=== PATIENT | female | born 1950 | race Two or more races ===

== ENCOUNTER 2017-04-15 21:05 | Emergency (ER) | payer OTHER, BC ==
[~2017-04-15] VITALS: Ht 149.9 cm; Wt 77.6 kg
[~2017-04-15 21:05] MED LIST: ALBU90AE IH; AMLO10TA2 PO; ATOR20TA PO; CALC600T12 PO; CHOL100044 PO; DOCU-170 PO; FLUT15.87 BNOSTRILS; FLUT1DIS IH; HYDR-552 PO; LOSA100T15 PO; MAGN400O6 PO; METO-304 PO; MULT1TAB73 PO; NORT25CA PO; NORT25CA5 PO; OMEG10007 PO; OMEP20CA10 PO; PHEN100C12 PO; POLY17PO4 PO; TRAM50TA2 PO; TRIA1CAP6 PO; WARF5TAB6 PO
--- NOTE | 2017-04-15 21:35 | NUR ---
67 yo female bb daughter. 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 pt denies diarrhea, pt skin warm and dry, rr even and unlabored. awaiting orders from provider
--- NOTE | 2017-04-15 21:41 | NUR ---
pt gowned, placed on cardiac catheterization technician
[2017-04-15] MEDS ORDERED: IV NS 0.9% 1,000 ML ONE (21:47)
[2017-04-15] MEDS ORDERED: ONDANSETRON HCL/PF 4 MG/2 ML VIAL ONE (21:47)
--- NOTE | 2017-04-15 21:50 | NUR ---
laborer demolition at bed side for blood draw
[2017-04-15 21:56] LABS: BASOPHILS # (AUTO) 0.1 /CMM (0.0-0.2); EOSINOPHILS # (AUTO) 0.1 /CMM (0.0-0.7); NEUTROPHILS # (AUTO) 4.7 /CMM (1.8-8.9); RDW COEFFICIENT OF VARIATION 12.7 (11.5-15.0)
--- NOTE | 2017-04-15 21:58 | NUR ---
20g rigth wrist iv started. medicated pt as ordered
[2017-04-15] MEDS ORDERED: IV NS 0.9% 1,000 ML BAG IV ONE (22:00)
[2017-04-15] MEDS ORDERED: ONDANSETRON HCL/PF 4 MG/2 ML VIAL IVP ONE (22:00)
[2017-04-15 22:01] LABS: BASOPHILS % (AUTO) 1.3 % (0.0-2.0); EOSINOPHILS % (AUTO) 1.7 % (0.0-6.0); HEMATOCRIT 43 % (33-45); HEMOGLOBIN 13.6 g/dL (11.5-14.8); LYMPHOCYTES # (AUTO) 1.3 /CMM (0.8-4.8); LYMPHOCYTES % (AUTO) 20.1 % (20.0-44.0); MEAN CORPUSCULAR HEMOGLOBIN 29 PG (26.0-33.0); MEAN CORPUSCULAR HGB CONC 32 g/dl (31.0-36.0); MEAN CORPUSCULAR VOLUME 92 fL (82-100); MONOCYTES # (AUTO) 0.4 /CMM (0.1-1.30); MONOCYTES % (AUTO) 6.6 % (2.0-12.0); NEUTROPHILS % (AUTO) 70.3 % (43.0-81.0); PLATELET COUNT (AUTO) 402 /CMM (150-450); RED BLOOD CELL COUNT(AUTO) 4.63 MIL/uL (4.0-5.2); WHITE BLOOD COUNT (AUTO) 6.6 K/uL (4.3-11.0)
[2017-04-15 22:14] LABS: CALCIUM, SERUM 9.3 mg/dL (8.5-10.1); POTASSIUM 4.5 mmol/L (3.5-5.1)
[2017-04-15 22:21] LABS: LACTIC ACID 1.6 mmol/L (0.4-2.0)
[2017-04-15 22:28] LABS: ALBUMIN 3.7 g/dL (3.4-5.0); BILIRUBIN,DIRECT 0.1 mg/dL (0.0-0.2); BILIRUBIN,TOTAL 0.5 mg/dL (0.2-1.0); TOTAL PROTEIN, SERUM 8.4 g/dL (6.4-8.2)
[2017-04-15] MEDS ORDERED: MORPHINE SULFATE INJ 2 MG/ML DISP.SYRIN IV ONE (22:30)
[2017-04-15] MEDS ORDERED: MORPHINE SULFATE INJ 4 MG/ML DISP.SYRIN ONE (22:33)
[2017-04-15] MEDS ORDERED: FENTANYL PF 100MCG/2ML AMPUL ONE (22:58)
[2017-04-15] MEDS ORDERED: FENTANYL PF 100MCG/2ML AMPUL IV ONE (23:00)
--- NOTE | 2017-04-15 23:11 | NUR ---
medicated pt as ordered
[2017-04-16 00:43] VITALS: BP 139/75
--- NOTE | 2017-04-16 00:43 | NUR ---
Patient discharged to home in stable condition. Written and verbal after care instructions given. Patient verbalizes understanding of instruction. PT ambulatory with a steady gait VITAL SIGNS WITHIN NORMAL LIMITS.IV removed. Catheter intact and site benign. Pressure and 4x4 applied to site. No bleeding noted.
== END 2017-04-16 00:44 | disposition home or self-care (01) ==
LOC: ER 21:05
DX: K42.9 Umbilical hernia without obstruction or gangrene (principal); E11.9 Type 2 diabetes mellitus without complications; E78.00 Pure hypercholesterolemia, unspecified; I10 Essential (primary) hypertension; K57.30 Diverticulosis of large intestine without perforation or abscess without bleeding; Z79.01 Long term (current) use of anticoagulants
CPT/HCPCS: 36415; 74176; 80048; 80076; 83605; 83690; 85025; 93005; 96361; 96374; 96375; 99285; A4606; J2270; J2405; J3010; J7030; Z7610

== ENCOUNTER 2019-05-19 14:57 | Emergency (ER) | payer OTHER, BC ==
[~2019-05-19] VITALS: Ht 149.9 cm; Wt 77.6 kg
[~2019-05-19 14:57] MED LIST changes: -AMLO10TA2 PO; +AMLO10TA7 PO; -DOCU-170 PO; +DOCU100C36 PO; +HYDR-4384 PO; -HYDR-552 PO; -LOSA100T15 PO; +LOSA100T31 PO; -METO-304 PO; +METO-357 PO; -OMEP20CA10 PO; +OMEP20CA11 PO; +WARF-58 PO; -WARF5TAB6 PO
--- NOTE | 2019-05-19 15:00 | NUR ---
BIB FAMILY W C/O COUGH AND CONGESTION X3 DAYS, -FEVER, AOX3, NOT IN DISTRESS, TO ER BED 1, HOOKED TO MONITOR. ON ROOM AIR AT 96% O2 SATURATION. CHANGED TO GOWN, PROVIDED W WARM BLANKET, AWAITING MD HSU.
[2019-05-19] MEDS ORDERED: IPRATROPIUM NEB FS 0.5 MG/2.5 ML AMPUL.NEB NEB ONE (15:30)
[2019-05-19] MEDS ORDERED: ALBUTEROL FS 2.5 MG/3 ML VIAL.NEB NEB ONE (15:30)
[2019-05-19] MEDS ORDERED: ALBUTEROL FS 2.5 MG/3 ML VIAL.NEB ONE (15:47)
[2019-05-19] MEDS ORDERED: IPRATROPIUM NEB FS 0.5 MG/2.5 ML AMPUL.NEB ONE (15:47)
[2019-05-19 15:50] LABS: BASOPHILS # (AUTO) 0.1 /CMM (0.0-0.2); BASOPHILS % (AUTO) 1.3 % (0.0-2.0); EOSINOPHILS % (AUTO) 2.2 % (0.0-6.0); HEMATOCRIT 43 % (33-45); HEMOGLOBIN 14.7 g/dL (11.5-14.8); LYMPHOCYTES # (AUTO) 0.9 /CMM (0.8-4.8); LYMPHOCYTES % (AUTO) 16.7 % (20.0-44.0); MEAN CORPUSCULAR HGB CONC 34 g/dl (31.0-36.0); MEAN CORPUSCULAR VOLUME 92 fL (82-100); MONOCYTES # (AUTO) 0.6 /CMM (0.1-1.30); MONOCYTES % (AUTO) 12.4 % (2.0-12.0); NEUTROPHILS # (AUTO) 3.5 /CMM (1.8-8.9); NEUTROPHILS % (AUTO) 67.4 % (43.0-81.0); PLATELET COUNT (AUTO) 245 /CMM (150-450); RED BLOOD CELL COUNT(AUTO) 4.69 MIL/uL (4.0-5.2); WHITE BLOOD COUNT (AUTO) 5.2 K/uL (4.3-11.0)
--- NOTE | 2019-05-19 15:58 | NUR ---
ONGOING BREATHING TREATMENT
[2019-05-19 16:10] LABS: CALCIUM, SERUM 9.4 mg/dL (8.5-10.1); CARBON DIOXIDE 29 mmol/L (21-32); CHLORIDE 99 mmol/L (98-107); CREATININE 0.7 mg/dL (0.6-1.3); GLUCOSE 134 mg/dL (74-106); SODIUM SERUM 136 mmol/L (136-145); UREA NITROGEN, BLOOD 15 mg/dL (7-18)
[2019-05-19 16:25] LABS: ALANINE AMINOTRANSFERASE 35 U/L (12-78); ALBUMIN 3.3 g/dL (3.4-5.0); ALKALINE PHOSPHATASE 118 U/L (46-116); ASPARTATE AMINOTRANSFERASE 23 U/L (15-37); B-TYPE NATRIURETIC PEPTIDE 205 PG/ML (0-125); BILIRUBIN,DIRECT 0.1 mg/dL (0.0-0.2); BILIRUBIN,TOTAL 0.8 mg/dL (0.2-1.0); TOTAL PROTEIN, SERUM 7.9 g/dL (6.4-8.2)
[2019-05-19 17:02] VITALS: BP 157/77
--- NOTE | 2019-05-19 17:03 | NUR ---
RX PROVIDED, PIV REMOVED, Patient discharged to home in stable condition. Written and verbal after care instructions given. Patient verbalizes understanding of instruction.
== END 2019-05-19 17:03 | disposition home or self-care (01) ==
LOC: ER 15:04
DX: J45.909 Unspecified asthma, uncomplicated (principal); E11.9 Type 2 diabetes mellitus without complications; I10 Essential (primary) hypertension; E78.00 Pure hypercholesterolemia, unspecified; Z90.710 Acquired absence of both cervix and uterus; Z86.73 Personal history of transient ischemic attack (TIA), and cerebral infarction without residual deficits; Z79.899 Other long term (current) drug therapy; Z79.01 Long term (current) use of anticoagulants
CPT/HCPCS: 36415; 71045-TC; 80048-TC; 80076-TC; 83880; 84484-TC; 85025-TC

== ENCOUNTER 2023-01-08 22:06 | Inpatient (IN) | payer OTHER ==
[~2023-01-08] VITALS: Ht 149.9 cm; Wt 83.5 kg
[~2023-01-08 22:06] MED LIST changes: +AMLO-213 PO; -AMLO10TA7 PO; +CALC-1143 PO; -CALC600T12 PO; +MULT-754 PO; -MULT1TAB73 PO; -OMEP20CA11 PO; +OMEP20CA15 PO
--- NOTE | 2023-01-08 22:27 | NUR ---
[id number] HOME C/O CHEST PAIN X 40 MIN. ASPIRIN 324MG AND .4NITRO SUBLINGUAL, PT IS ALERT AND ORIENTED. RR EVEN AND NONLABORED. CONNECTED TO MONITOR
--- NOTE | 2023-01-08 22:28 | NUR ---
IV LINE, LAC20G
[2023-01-08] MEDS ORDERED: NITROGLYCERIN 0.4 MG/TAB BOTTLE SL ONE (22:30)
--- NOTE | 2023-01-08 22:36 | NUR ---
MEAT SEAFOOD ASSOCIATE AT PT'S BEDSIDE
[2023-01-08] MEDS ORDERED: NITROGLYCERIN 0.4 MG/TAB BOTTLE ONE (22:38)
[2023-01-08 22:48] LABS: BASOPHILS # (AUTO) 0.1 K/uL (0.0-0.2); BASOPHILS % (AUTO) 1.2 % (0.0-2.0); EOSINOPHILS % (AUTO) 2.6 % (0.0-6.0); HEMATOCRIT 38 % (33-45); HEMOGLOBIN 12.7 g/dL (11.5-14.8); LYMPHOCYTES # (AUTO) 2.3 K/uL (0.8-4.8); LYMPHOCYTES % (AUTO) 28.2 % (20.0-44.0); MEAN CORPUSCULAR HGB CONC 33 g/dl (31.0-36.0); MEAN CORPUSCULAR VOLUME 88 fL (82-100); MONOCYTES # (AUTO) 0.7 K/uL (0.1-1.30); MONOCYTES % (AUTO) 8.4 % (2.0-12.0); NEUTROPHILS # (AUTO) 4.9 K/uL (1.8-8.9); NEUTROPHILS % (AUTO) 59.6 % (43.0-81.0); PLATELET COUNT (AUTO) 272 K/uL (150-450); RED BLOOD CELL COUNT(AUTO) 4.34 MIL/uL (4.0-5.2); WHITE BLOOD COUNT (AUTO) 8.3 K/uL (4.3-11.0)
[2023-01-08 23:10] LABS: CARBON DIOXIDE 26 mmol/L (21-32); CHLORIDE 95 mmol/L (98-107); CREATININE 1.1 mg/dL (0.6-1.3); GLUCOSE 314 mg/dL (74-106); POTASSIUM 3.8 mmol/L (3.5-5.1); SODIUM SERUM 130 mmol/L (136-145); UREA NITROGEN, BLOOD 16 mg/dL (7-18)
[2023-01-09] MEDS ORDERED: NITROGLYCERIN PACKET 1 GM PACKET TD ONE
[2023-01-09] MEDS ORDERED: NITROGLYCERIN PACKET 1 GM PACKET ONE (00:09)
[2023-01-09] MEDS ORDERED: MAGNESIUM HYDROXIDE 30 ML UDC PO PRN (02:30)
[2023-01-09] MEDS ORDERED: MAG HYDROX/AL HYDROX/SIMETH 30 ML UDC PO PRN (02:30)
[2023-01-09] MEDS ORDERED: Z GUARD REMEDY 4 OZ OINT TP PRN (02:30)
[2023-01-09] MEDS ORDERED: ASPIRIN EC 81 MG TABLET.DR PO ONE ×2 (02:30→05:00)
[2023-01-09] MEDS ORDERED: ENOXAPARIN SODIUM 40 MG/0.4 ML DISP.SYRIN SQ SCH (02:30)
[2023-01-09] MEDS ORDERED: ZOLPIDEM TARTRATE 5 MG TABLET PO PRN (02:30)
[2023-01-09] MEDS ORDERED: ONDANSETRON HCL/PF 4 MG/2 ML VIAL IVP PRN (02:30)
--- NOTE | 2023-01-09 02:52 | NUR ---
REPORT GIVEN TO YAMIL SANCHEZ FOR BABAR
[2023-01-09 04:45] VITALS: BP 115/73
--- NOTE | 2023-01-09 04:45 | NUR ---
CUB REPORTERBULLDOZER PRESS OPERATOR NOTE PATIENT ARRIVED FROM ER, ALERT/ORIENTED X 4, PT ABLE TO MAKE NEEDS KNOWN. PATIENT STABLE ON RA, NO S/S OF DISTRESS OR SOB NOTED, BREATHING EVEN AND UNLABORED. PATIENT PLACED ON TELE MONITOR READING CONTROLLED A. FIB, HR: 82. IV ACCESS ON LAC #20G INTACT AND FLUSHING WELL. PATIENT STILL REPORTING CHEST PAIN WHEN INHALING. VITAL SIGNS WNL. PATIENT USES CANE/WALKER TO WALK AT HOME, REPORTS SOME WEAKNESS SO NEEDS ASSISTANCE WITH AMBULATION. PATIENT VACCINATED FOR FLU THIS SEASON AND COVID X 4. PATIENT BELONGINGS DOCUMENTED, ID BAND PLACED ON PATIENT. ORIENTED PATIENT TO ROOM AND HOW TO USE CALL LIGHT. SAFETY MEASURES IN PLACE: CALL LIGHT WITHIN REACH, SIDE RAILS UP X 2, BED LOCKED IN LOWEST POSITION, BED ALARM ON. WILL CONTINUE TO MONITOR PATIENT
--- NOTE | 2023-01-09 04:54 | NUR ---
BRAKE OPERATOR HELPER NOTE CALLED PHARMACY TO RESCHEDULE ASPIRIN 81 MG AND LOVENOX THAT WERE SCHEDULED AT 0230 SINCE PATIENT JUST ARRIVED ON FLOOR
[2023-01-09] MEDS: ENOXAPARIN SODIUM 40 MG/0.4 ML DISP.SYRIN SQ SCH (05:08)
--- NOTE | 2023-01-09 05:57 | NUR ---
FINANCE INTERN NOTE SPOKE TO SECURITY ARCHITECT BRANDY ANTONIO DR MODERATE SLIDING SCALE INSULIN
[2023-01-09] MEDS ORDERED: DEXTROSE 50%-WATER 50 ML DISP.SYRIN IV PRN (06:00)
[2023-01-09] MEDS ORDERED: *INSULIN REGULAR(HUMULIN R)HUM 100 UNIT/ML VIAL SQ PRN (06:00)
[2023-01-09] MEDS: BLOOD SUGAR DIAGNOSTIC 1 EACH STRIP IN SCH ×4 (06:56→22:09)
[2023-01-09] MEDS: INSULIN REGULAR, HUMAN 100 UNIT/ML 3 ML VIAL SQ PRN ×3 (06:57→17:51)
--- NOTE | 2023-01-09 07:25 | NUR ---
WIRELINE FIELD OPERATOR OPENING NOTES RECEIVED PT IN BED, AWAKE. A/O X 4, C/O MILD TOLERABLE CHEST PAIN. DID NOT ASKED FOR PAIN MEDICINE AT THIS TIME. IV ACCESS IN LAC #20G, SL, C/D/I. ON RA, NO ACUTE SIGN OF RESPIRATORY DISTRESS. ON BACKPACKERS MANAGER WITH AFIB CONTROLLED, HR 78. SAFETY MEASURES IN PLACE: BED LOCKED AND IN LOWEST POSITION, BED ALARM ON, SIDE RAILS X 2, CALL LIGHT AND TRAY TABLE WITHIN EASY REACH. WILL CONTINUE TO MONITOR.
--- NOTE | 2023-01-09 07:30 | NUR ---
TABLE HAND CLOSING NOTE PATIENT AWAKE IN BED, ALERT/ORIENTED X 4, PRIMARILY ENGLISH SPEAKING BUT SPEAKS SOME MOHAWK. PATIENT STABLE ON RA, NO S/S OF DISTRESS OR SOB NOTED, BREATHING EVEN AND UNLABORED. PATIENT ON EXTERNAL PURCHASING OFFICER READING CONTROLLED A. FIB, HR: 80. IV ACCESS ON LAC #20G INTACT AND SALINE LOCKED. MEDICATIONS GIVEN ORDERED, PT NEEDS MET THROUGHOUT SHIFT. SAFETY MEASURES IN PLACE: CALL LIGHT WITHIN REACH, SIDE RAILS UP X 2, BED LOCKED IN LOWEST POSITION, HOB ELEVATED, BED ALARM ON. ENDORSED TO DAYSHIFT RN FOR CONTINUITY OF CARE
[2023-01-09] MEDS: PANTOPRAZOLE 40 MG TABLET.DR PO SCH (07:51)
[2023-01-09 08:28] VITALS: BP 116/75
[2023-01-09] MEDS ORDERED: NORT25CA5 PO (10:20)
[2023-01-09] MEDS ORDERED: ICOS1CAP PO (10:20)
[2023-01-09] MEDS ORDERED: METO-357 PO (10:20)
[2023-01-09] MEDS ORDERED: ATOR20TA PO (10:20)
[2023-01-09] MEDS ORDERED: FLUT1DIS IH (10:20)
[2023-01-09] MEDS ORDERED: OMEP20CA15 PO (10:20)
[2023-01-09] MEDS ORDERED: GLIP1TAB6 PO (10:20)
[2023-01-09] MEDS ORDERED: ALBU90AE IH (10:20)
[2023-01-09] MEDS ORDERED: LOSA100T31 PO (10:20)
[2023-01-09] MEDS ORDERED: ASPI-1169 PO (10:20)
[2023-01-09] MEDS ORDERED: AMLO-213 PO (10:20)
[2023-01-09] MEDS ORDERED: FLUT15.87 BNOSTRILS (10:20)
[2023-01-09] MEDS ORDERED: HYDR12.55 PO (10:20)
[2023-01-09] MEDS: ACETAMINOPHEN 325 MG TABLET PO PRN (10:24)
[2023-01-09] MEDS: METOPROLOL TARTRATE 50 MG TABLET PO SCH ×2 (10:25→20:32)
[2023-01-09 10:53] LABS: THYROID STIMULATING HORMONE 2.612 uIU/mL (0.358-3.74)
--- NOTE | 2023-01-09 11:00 | NUR ---
RN NOTES PT SEEN BY DR PATEL THIS MORNING. PT FOR CTCA, PROCEDURE EXPLAINED TO PT AND HER DAUGHTER, BOTH VERBALIZE UNDERSTANDING. PT SIGNED CONSENT AND OBTAINED CONTRAST ADMINISTRATION QUESTIONNAIRE.
[2023-01-09 12:00] VITALS: BP 124/72
--- NOTE | 2023-01-09 12:00 | NUR ---
RN NOTES BS 199 TAKEN BEFORE LUNCH, PT REFUSED INSULIN COVERAGE.
[2023-01-09] MEDS ORDERED: IV NS 0.9% 250 ML IV ONE (13:59)
[2023-01-09] MEDS ORDERED: IOHEXOL-350 100 ML VIAL IV ONE (13:59)
[2023-01-09] MEDS ORDERED: CT SWABBABLE VALVE TRANS SET 1 EA INFUS.SET MC ONE (13:59)
[2023-01-09] MEDS: METOPROLOL TARTRATE INJ 5 MG/5 ML AMPUL IVP PRN ×4 (15:25→15:40)
[2023-01-09] MEDS ORDERED: METOPROLOL TARTRATE INJ 5 MG/5 ML AMPUL ONE (15:27)
--- NOTE | 2023-01-09 15:30 | NUR ---
RN NOTES DR. CORONADO IN THE UNIT, INFORMED HER TO DO HOME MED RECON.
--- NOTE | 2023-01-09 16:46 | NUR ---
RN NOTES PT HAD CTCA THIS AFTERNOON, RESULTS STILL PENDING
--- NOTE | 2023-01-09 18:05 | NUR ---
RN NOTES INFORMED DR PATEL OF PT'S CTCA RESULTS THAT WAS DONE THIS AFTERNOON.
--- NOTE | 2023-01-09 18:45 | NUR ---
FLOOR SPECIALIST CLOSING NOTES PT IN BED RESTING WITH DAUGHTER AT BEDSIDE. A/O X 4, ABLE TO VERBALIZED NEEDS. IV ACCESS IN LAC #20G, SL, INTACT AND PATENT. ON RA, NO ACUTE SIGN OF RESPIRATORY DISTRESS, BREATHING EVEN AND UNLABORED. ON CRIME PREVENTION WORKER WITH CURRENT READING OF AFIB CONTROLLED, HR 65. NEEDS ATTENDED WELL. SAFETY MEASURES IN PLACE: BED LOCKED AND IN LOWEST POSITION, BED ALARM ON, SIDE RAILS UPX 2, CALL LIGHT AND TRAY TABLE WITHIN EASY REACH. WILL ENDORSE BABAR TO PERCUSSION TEACHER NURSE.
--- NOTE | 2023-01-09 19:30 | NUR ---
DINING CAR WAITER/WAITRESS OPENING NOTE PATIENT IN BED, AWAKE, A/O X 4, CONGOLESE SPEAKING BUT CAN UNDERSTAND [place]; STABLE ON ROOM AIR. BREATHING EQUALLY AND UNLABORED. DENIES ANY PAIN OR DISCOMFORT AT THIS TIME; WITH IV ACCESS ON LAC G20 SALINE LOCK INTACT PATENT. HOOKED TO MANAGER FAST FOOD CURRENTLY READING CONTROLLED ATRIAL FIBRILLATION 80S BPM; SAFETY PRECAUTIONS IMPLEMENTED: CALL LIGHT AND TABLE WITHIN REACH, SIDE RAILS UP X 3, BED IN LOWEST LOCKED POSITION; WILL CONTINUE TO MONITOR THROUGHOUT SHIFT
[2023-01-09 20:00] VITALS: BP 110/66
--- NOTE | 2023-01-09 22:10 | NUR ---
VEGETABLE FARMWORKER NOTE ACCUCHECK WAS DONE AND PATIENT'S BLOOD SUGAR WAS 193. 3 UNITS OF INSULIN WAS GIVEN PER SLIDING SCALE. PATIENT TOLERATED WELL
[2023-01-10] VITALS: BP 116/71
[2023-01-10 04:00] VITALS: BP 129/74
[2023-01-10] MEDS: INSULIN REGULAR, HUMAN 100 UNIT/ML 3 ML VIAL SQ PRN ×3 (06:14→17:20)
--- NOTE | 2023-01-10 06:30 | NUR ---
OPHTHALMIC LENS INSPECTOR NOTE ACCUCHECK WAS DONE AND BLOOD SUGAR OF PATIENT IS 160. ADMINISTERED 2 UNITS OF INSULIN PER SLIDING SCALE. TOLERATED WELL
[2023-01-10] MEDS: BLOOD SUGAR DIAGNOSTIC 1 EACH STRIP IN SCH ×3 (06:31→16:50)
--- NOTE | 2023-01-10 06:41 | NUR ---
PERSONNEL REPRESENTATIVE CLOSING NOTE PATIENT IN BED, ASLEEP, A/O X 4, UKRAINIAN SPEAKING BUT CAN UNDERSTAND [place]; STABLE ON ROOM AIR. BREATHING EVENLY AND UNLABORED. DENIES ANY PAIN OR DISCOMFORT AT THIS TIME; WITH IV ACCESS ON LAC G20 SALINE LOCK INTACT AND PATENT. HOOKED TO POWER PLANT OPERATORS SUPERVISOR CURRENTLY READING CONTROLLED ATRIAL FIBRILLATION 80-90S BPM; ADMINISTERED MEDICATIONS PRESCRIBED; PATIENT'S NEEDS ATTENDED; MONITORED PATIENT ACCORDINGLY; SAFETY PRECAUTIONS IMPLEMENTED: CALL LIGHT AND TABLE WITHIN REACH, SIDE RAILS UP X 3, BED IN LOWEST LOCKED POSITION; WILL ENDORSE TO AM NURSE FOR BABAR.
[2023-01-10 06:55] LABS: BASOPHILS # (AUTO) 0.1 K/uL (0.0-0.2); BASOPHILS % (AUTO) 1.4 % (0.0-2.0); EOSINOPHILS % (AUTO) 3.4 % (0.0-6.0); HEMATOCRIT 39 % (33-45); HEMOGLOBIN 12.6 g/dL (11.5-14.8); LYMPHOCYTES # (AUTO) 1.5 K/uL (0.8-4.8); LYMPHOCYTES % (AUTO) 31.5 % (20.0-44.0); MEAN CORPUSCULAR HGB CONC 32 g/dl (31.0-36.0); MEAN CORPUSCULAR VOLUME 89 fL (82-100); MONOCYTES # (AUTO) 0.5 K/uL (0.1-1.30); MONOCYTES % (AUTO) 10.8 % (2.0-12.0); NEUTROPHILS # (AUTO) 2.6 K/uL (1.8-8.9); NEUTROPHILS % (AUTO) 52.9 % (43.0-81.0); PLATELET COUNT (AUTO) 289 K/uL (150-450); RED BLOOD CELL COUNT(AUTO) 4.39 MIL/uL (4.0-5.2); WHITE BLOOD COUNT (AUTO) 4.9 K/uL (4.3-11.0)
[2023-01-10 07:09] LABS: CREATININE 0.9 mg/dL (0.6-1.3); PHOSPHORUS 4.4 mg/dL (2.5-4.9); POTASSIUM 4.7 mmol/L (3.5-5.1)
--- NOTE | 2023-01-10 07:26 | NUR ---
MEMBER SERVICE SPECIALIST OPENING NOTE PATIENT IN BED, AWAKE, A/O X 4. ON ROOM AIR, BREATHING EQUALLY AND UNLABORED. DENIES ANY PAIN OR DISCOMFORT AT THIS TIME. IV ACCESS ON LAC #20G, SL, INTACT AND PATENT. HOOKED TO ACID CORRECTION HAND WITH CURRENT READING CONTROLLED ATRIAL FIBRILLATION, HR- 78. SAFETY PRECAUTIONS IMPLEMENTED: CALL LIGHT AND TABLE WITHIN REACH, SIDE RAILS UP X 3, BED IN LOWEST LOCKED POSITION. WILL CONTINUE TO MONITOR.
[2023-01-10] MEDS: PANTOPRAZOLE 40 MG TABLET.DR PO SCH (07:58)
[2023-01-10 08:00] VITALS: BP 120/66
[2023-01-10] MEDS: ACETAMINOPHEN 325 MG TABLET PO PRN (08:00)
[2023-01-10 08:25] VITALS: BP 105/63
[2023-01-10] MEDS: ENOXAPARIN SODIUM 40 MG/0.4 ML DISP.SYRIN SQ SCH (08:25)
[2023-01-10] MEDS: METOPROLOL TARTRATE 50 MG TABLET PO SCH (08:25)
--- NOTE | 2023-01-10 18:24 | NUR ---
PLANT QUALITY MANAGER NOTE PATIENT DISCHARGED TO HOME IN STABLE CONDITION. A/O X 4. ON ROOM AIR, TOLERATED WELL. ABLE TO MAKE NEEDS KNOWN. V/S TAKEN AND RECORDED. IV ACCESS ON LAC REMOVED, DRY DRESSING APPLIED ON SITE. ALL BELONGINGS ACCOUNTED FOR. DISCHARGE INSTRUCTIONS GIVEN TO PT AND DAUGHTER MARY, BOTH VERBALIZED UNDERSTANDING. NAME ARM BAND REMOVED. MD AND CHARGE NURSE AWARE OF DISCHARGE. PT LEFT THE UNIT @1806 VIA WHEELCHAIR ACCOMPANIED BY DAUGHTER AND RN SHRUTHI.
== END 2023-01-10 19:15 | disposition home or self-care (01) | DRG 206 ==
LOC: ER 22:07 → TELE 01-09 02:46
PROVIDERS: ADMIT Student in an Organized Health Care Education/Training Program; ATTEND Student in an Organized Health Care Education/Training Program
DX: M94.0 Chondrocostal junction syndrome [Tietze] (principal); I69.354 Hemiplegia and hemiparesis following cerebral infarction affecting left non-dominant side; D68.59 Other primary thrombophilia; E87.1 Hypo-osmolality and hyponatremia; J98.11 Atelectasis; E11.9 Type 2 diabetes mellitus without complications; I25.10 Atherosclerotic heart disease of native coronary artery without angina pectoris; I48.91 Unspecified atrial fibrillation; I25.2 Old myocardial infarction; I10 Essential (primary) hypertension; J45.909 Unspecified asthma, uncomplicated; E78.00 Pure hypercholesterolemia, unspecified; Z90.710 Acquired absence of both cervix and uterus; Z79.51 Long term (current) use of inhaled steroids; Z79.01 Long term (current) use of anticoagulants; Z79.899 Other long term (current) drug therapy; E78.5 Hyperlipidemia, unspecified; Z86.718 Personal history of other venous thrombosis and embolism; Z79.84 Long term (current) use of oral hypoglycemic drugs; Z79.82 Long term (current) use of aspirin; I67.1 Cerebral aneurysm, nonruptured; K42.9 Umbilical hernia without obstruction or gangrene; K44.9 Diaphragmatic hernia without obstruction or gangrene; K57.30 Diverticulosis of large intestine without perforation or abscess without bleeding
CPT/HCPCS: 36415; 71045-TC; 75574; 80048-TC; 80061-TC; 82962-TC; 83735-TC; 84100-TC; 84439-TC; 84443-TC; 84484-TC; 85025-TC; 87081-TC; 93307-TC; C9803; G0378; J1650; J1815; J3490; J7050; Q9967

== ENCOUNTER 2024-01-07 12:30 | Emergency (ER) | payer OTHER, MEDICAID ==
[~2024-01-07] VITALS: Ht 149.9 cm; Wt 77.1 kg
[~2024-01-07 12:30] MED LIST changes: +ASPI-1169 PO; -CALC-1143 PO; -CHOL100044 PO; -DOCU100C36 PO; +GLIP1TAB6 PO; -HYDR-4384 PO; +HYDR12.55 PO; +ICOS1CAP PO; -MAGN400O6 PO; -MULT-754 PO; -NORT25CA PO; -OMEG10007 PO; -PHEN100C12 PO; -POLY17PO4 PO; -TRAM50TA2 PO; -TRIA1CAP6 PO; -WARF-58 PO
[2024-01-07] MEDS ORDERED: IV NS 0.9% 250 ML IV ONE (13:02)
[2024-01-07] MEDS ORDERED: IOHEXOL-350 100 ML VIAL IV ONE ×2 (13:02→13:40)
[2024-01-07] MEDS ORDERED: CT SWABBABLE VALVE TRANS SET 1 EA INFUS.SET MC ONE (13:02)
[2024-01-07 13:21] LABS: BASOPHILS # (AUTO) 0.1 K/uL (0.0-0.2); BASOPHILS % (AUTO) 1.2 % (0.0-2.0); EOSINOPHILS # (AUTO) 0.2 K/uL (0.0-0.7); EOSINOPHILS % (AUTO) 2.6 % (0.0-6.0); HEMATOCRIT 38 % (33-45); HEMOGLOBIN 12.6 g/dL (11.5-14.8); LYMPHOCYTES # (AUTO) 1.7 K/uL (0.8-4.8); LYMPHOCYTES % (AUTO) 21.9 % (20.0-44.0); MEAN CORPUSCULAR HEMOGLOBIN 28 PG (26.0-33.0); MEAN CORPUSCULAR HGB CONC 33 g/dl (31.0-36.0); MEAN CORPUSCULAR VOLUME 85 fL (82-100); MONOCYTES # (AUTO) 0.6 K/uL (0.1-1.30); MONOCYTES % (AUTO) 7.4 % (2.0-12.0); NEUTROPHILS # (AUTO) 5.1 K/uL (1.8-8.9); NEUTROPHILS % (AUTO) 66.9 % (43.0-81.0); PLATELET COUNT (AUTO) 284 K/uL (150-450); RED BLOOD CELL COUNT(AUTO) 4.51 MIL/uL (4.0-5.2); RED CELL DISTRIBUTION WIDTH 15.6 % (11.5-15.0); WHITE BLOOD COUNT (AUTO) 7.6 K/uL (4.3-11.0)
[2024-01-07 13:28] LABS: CALCIUM, SERUM 9.6 mg/dL (8.5-10.1); CARBON DIOXIDE 28 mmol/L (21-32); CHLORIDE 97 mmol/L (98-107); GLUCOSE 205 mg/dL (74-106); POTASSIUM 4.6 mmol/L (3.5-5.1); SODIUM SERUM 135 mmol/L (136-145); UREA NITROGEN, BLOOD 23 mg/dL (7-18)
[2024-01-07 13:32] LABS: INR 1.03 (0.91-1.10); PARTIAL THROMBOPLASTIN TIME 31.8 SEC (24.3-34.3); PROTHROMBIN TIME 10.9 SECS (9.2-11.1)
[2024-01-07] MEDS ORDERED: GLIP1TAB6 PO (14:13)
[2024-01-07] MEDS ORDERED: ACET-2605 PO (14:13)
[2024-01-07] MEDS ORDERED: APIX5TAB PO (14:13)
[2024-01-07 14:46] LABS: APPEARANCE,URINE SLIGHTLY CLOUDY (CLEAR); BILIRUBIN,URINE NEGATIVE (NEGATIVE); BLOOD, URINE TRACE-INTA Ery/uL (NEGATIVE); COLOR,URINE YELLOW (YELLOW); KETONES,URINE NEGATIVE (NEGATIVE); LEUKOCYTE ESTERASE ,URINE 1+ (NEGATIVE); NITRITE, URINE NEGATIVE (NEGATIVE); PROTEIN,URINE 1+ mg/dl (NEGATIVE); UGLUCOSE NEGATIVE (NEGATIVE); UROBILINOGEN,URINE 0.2 EU/dL (0.2)
[2024-01-07 15:55] LABS: ADD URINE CULTURE YES; BACTERIA,URINE 4+ /HPF (None Seen)
[2024-01-07 15:56] LABS: SQUAMOUS EPITHELIAL CELL,UR 0-2 /HPF (None Seen)
[2024-01-07 18:37] VITALS: TEMP 98
[2024-01-07 20:47] VITALS: BP 122/55; O2SAT 98
== END 2024-01-07 22:42 | disposition short-term general hospital (02) ==
LOC: ER 12:34
DX: H49.11 Fourth [trochlear] nerve palsy, right eye (principal); H53.2 Diplopia; I10 Essential (primary) hypertension; E78.5 Hyperlipidemia, unspecified; E11.9 Type 2 diabetes mellitus without complications; Z90.710 Acquired absence of both cervix and uterus; Z79.899 Other long term (current) drug therapy
CPT/HCPCS: 99285; 70498; 93005; 70496; 85025; 80048; 87086; 81001; 36415; 84484; 85730; 82962; J7050; A6403 ×2; Q9967 ×2

== ENCOUNTER 2024-01-21 00:08 | Inpatient (IN) | payer MEDICAID, OTHER ==
[~2024-01-21] VITALS: Ht 157.5 cm; Wt 79.4 kg
[2024-01-21] VITALS (18 sets, daily range): BP systolic 103–138; BP diastolic 58–96; TEMP 97.3–97.6; O2SAT 95–100
[~2024-01-21 00:08] MED LIST changes: +ACET-2605 PO; +APIX5TAB PO; -ASPI-1169 PO; -FLUT15.87 BNOSTRILS
[2024-01-21 00:35] LABS: BASOPHILS % (AUTO) 0.1 % (0.0-2.0); EOSINOPHILS % (AUTO) 0.1 % (0.0-6.0); HEMATOCRIT 45 % (33-45); HEMOGLOBIN 14.4 g/dL (11.5-14.8); LYMPHOCYTES # (AUTO) 0.8 K/uL (0.8-4.8); LYMPHOCYTES % (AUTO) 3.6 % (20.0-44.0); MEAN CORPUSCULAR HEMOGLOBIN 28 PG (26.0-33.0); MEAN CORPUSCULAR HGB CONC 32 g/dl (31.0-36.0); MEAN CORPUSCULAR VOLUME 86 fL (82-100); MONOCYTES # (AUTO) 0.4 K/uL (0.1-1.30); MONOCYTES % (AUTO) 1.9 % (2.0-12.0); NEUTROPHILS # (AUTO) 21.8 K/uL (1.8-8.9); NEUTROPHILS % (AUTO) 94.3 % (43.0-81.0); PLATELET COUNT (AUTO) 399 K/uL (150-450); RED BLOOD CELL COUNT(AUTO) 5.23 MIL/uL (4.0-5.2); RED CELL DISTRIBUTION WIDTH 16.3 % (11.5-15.0); WHITE BLOOD COUNT (AUTO) 23.1 K/uL (4.3-11.0)
[2024-01-21 00:51] LABS: CALCIUM, SERUM 9.7 mg/dL (8.5-10.1); CARBON DIOXIDE 24 mmol/L (21-32); CHLORIDE 98 mmol/L (98-107); CREATININE 1.6 mg/dL (0.6-1.3); GLUCOSE 365 mg/dL (74-106); POTASSIUM 4.1 mmol/L (3.5-5.1); SODIUM SERUM 132 mmol/L (136-145); UREA NITROGEN, BLOOD 32 mg/dL (7-18)
[2024-01-21 00:56] LABS: ALANINE AMINOTRANSFERASE 49 U/L (12-78); ALBUMIN 2.4 g/dL (3.4-5.0); ALKALINE PHOSPHATASE 182 U/L (46-116); ASPARTATE AMINOTRANSFERASE 31 U/L (15-37); BILIRUBIN,DIRECT 0.4 mg/dL (0.0-0.2); TOTAL PROTEIN, SERUM 6.9 g/dL (6.4-8.2)
[2024-01-21] MEDS ORDERED: CT SWABBABLE VALVE TRANS SET 1 EA INFUS.SET MC ONE ×2 (00:56→10:19)
[2024-01-21] MEDS ORDERED: IOHEXOL-350 100 ML VIAL IV ONE ×3 (00:56→10:19)
[2024-01-21] MEDS ORDERED: IV NS 0.9% 250 ML IV ONE ×2 (00:56→10:20)
[2024-01-21 00:57] LABS: INR 1.15 (0.91-1.10); PARTIAL THROMBOPLASTIN TIME 31.1 SEC (24.3-34.3); PROTHROMBIN TIME 12.1 SECS (9.2-11.1)
[2024-01-21 01:02] LABS: APPEARANCE,URINE CLEAR (CLEAR); BILIRUBIN,URINE 2+ (NEGATIVE); BLOOD, URINE NEGATIVE Ery/uL (NEGATIVE); COLOR,URINE DARK YELLOW (YELLOW); KETONES,URINE 1+ mg/dL (NEGATIVE); LEUKOCYTE ESTERASE ,URINE NEGATIVE (NEGATIVE); NITRITE, URINE POSITIVE (NEGATIVE); PROTEIN,URINE 1+ mg/dl (NEGATIVE); UGLUCOSE NEGATIVE (NEGATIVE)
[2024-01-21 01:06] LABS: LACTIC ACID 3.8 mmol/L (0.4-2.0)
[2024-01-21 01:16] LABS: ADD URINE CULTURE YES; BACTERIA,URINE 1+ /HPF (None Seen); MUCUS,URINE Moderate /LPF (None Seen); RBC,URINE NONE SEEN /HPF (0-2); WBC,URINE 0-2 /HPF (0-3)
[2024-01-21] MEDS ORDERED: CEFTRIAXONE 1GM BAG (ER ONLY) 50 ML IV ONE ×2 (02:46→03:30)
[2024-01-21] MEDS: CEFTRIAXONE 1GM BAG (ER ONLY) 1 GM/50 ML PIGGYBACK IV ONE (02:53)
[2024-01-21] MEDS ORDERED: CRAN3875 PO (07:56)
[2024-01-21] MEDS ORDERED: MULT-213 PO (07:56)
[2024-01-21] MEDS ORDERED: FLUT1BLS IH (07:56)
[2024-01-21] MEDS ORDERED: LACT1CAP7 PO (07:56)
[2024-01-21] MEDS ORDERED: METO50TA16 PO (07:56)
[2024-01-21] MEDS ORDERED: IPRA3AMP22 IH (07:56)
[2024-01-21] MEDS ORDERED: DOCU100C36 PO (07:56)
[2024-01-21] MEDS ORDERED: ACET-868 PO (07:56)
[2024-01-21] MEDS ORDERED: ASCO-340 PO (07:56)
[2024-01-21] MEDS ORDERED: INSU100V7 SQ (07:56)
[2024-01-21] MEDS ORDERED: MAGN400O6 PO (07:56)
[2024-01-21] MEDS ORDERED: INSU100V39 SQ (07:56)
[2024-01-21] MEDS ORDERED: ACET-2605 PO (07:56)
[2024-01-21] MEDS ORDERED: OMEP20CA15 PO (07:56)
[2024-01-21] MEDS ORDERED: APIXABAN 5 MG TABLET PO SCH (09:00)
[2024-01-21] MEDS ORDERED: MAG HYDROX/AL HYDROX/SIMETH 30 ML UDC PO PRN (09:00)
[2024-01-21] MEDS: FLUTICASONE/VILANTEROL 1 EACH BLST.W.DEV IH SCH (09:00)
[2024-01-21] MEDS ORDERED: MAGNESIUM HYDROXIDE 30 ML UDC PO PRN (09:00)
[2024-01-21] MEDS: AMLODIPINE BESYLATE 10 MG TABLET PO SCH (09:00)
[2024-01-21] MEDS ORDERED: Z GUARD REMEDY 4 OZ OINT TP PRN (09:00)
[2024-01-21] MEDS: IV NS 0.9% 500 ML IV ONE (09:00)
[2024-01-21] MEDS ORDERED: PROTHROMBIN COMPLEX CONCENTR 500 UNIT VIAL IV ONE (09:00)
[2024-01-21] MEDS ORDERED: ONDANSETRON HCL/PF 4 MG/2 ML VIAL IVP PRN (09:00)
[2024-01-21] MEDS ORDERED: ZOLPIDEM TARTRATE 5 MG TABLET PO PRN (09:00)
[2024-01-21] MEDS: PROTHROMBIN COMPLEX CONCENTR 500 UNIT VIAL IV ONE (10:51)
[2024-01-21] MEDS: PANTOPRAZOLE 40 MG TABLET.DR PO SCH (14:29)
[2024-01-21] MEDS: IV NS 0.9% 1,000 ML IV PRN (14:32)
[2024-01-21] MEDS: METOCLOPRAMIDE HCL 10 MG/2 ML VIAL IV SCH (14:33)
[2024-01-21] MEDS: CEFEPIME 1 GM in IV D5W 50 ML IV SCH (16:52)
[2024-01-21] MEDS: VANCOMYCIN HCL 1.25 GM in IV D5W 250 ML IV SCH (17:26)
[2024-01-21] MEDS: NORTRIPTYLINE HCL 25 MG CAPSULE PO SCH (22:00)
[2024-01-21] MEDS: ATORVASTATIN 40 MG TABLET PO SCH (22:00)
[2024-01-21] MEDS ORDERED: CEFTRIAXONE 1 G in IV D5W 50 ML IV SCH (23:00)
[2024-01-22] VITALS (40 sets, daily range): BP systolic 79–127; BP diastolic 38–95; TEMP 98–98.7; O2SAT 93–100
[2024-01-22 03:48] LABS: BASOPHILS # (AUTO) 0.1 K/uL (0.0-0.2); BASOPHILS % (AUTO) 0.4 % (0.0-2.0); EOSINOPHILS % (AUTO) 0.3 % (0.0-6.0); HEMATOCRIT 33 % (33-45); HEMOGLOBIN 11.1 g/dL (11.5-14.8); LYMPHOCYTES % (AUTO) 6.9 % (20.0-44.0); MEAN CORPUSCULAR HEMOGLOBIN 28 PG (26.0-33.0); MEAN CORPUSCULAR HGB CONC 33 g/dl (31.0-36.0); MEAN CORPUSCULAR VOLUME 84 fL (82-100); MONOCYTES # (AUTO) 0.7 K/uL (0.1-1.30); MONOCYTES % (AUTO) 5.2 % (2.0-12.0); NEUTROPHILS # (AUTO) 12.2 K/uL (1.8-8.9); NEUTROPHILS % (AUTO) 87.2 % (43.0-81.0); PLATELET COUNT (AUTO) 381 K/uL (150-450); RED BLOOD CELL COUNT(AUTO) 3.98 MIL/uL (4.0-5.2); RED CELL DISTRIBUTION WIDTH 16.4 % (11.5-15.0)
[2024-01-22 04:06] LABS: CALCIUM, SERUM 8.7 mg/dL (8.5-10.1); CARBON DIOXIDE 24 mmol/L (21-32); CHLORIDE 103 mmol/L (98-107); CHOLESTEROL 89 mg/dL (<200); CREATININE 1.2 mg/dL (0.6-1.3); GLUCOSE 170 mg/dL (74-106); HDL CHOLESTEROL 41 mg/dL (40-60); LDL 32 mg/dL (0-99); MAGNESIUM 2.6 mg/dL (1.8-2.4); PHOSPHORUS 4.8 mg/dL (2.5-4.9); POTASSIUM 4.5 mmol/L (3.5-5.1); SODIUM SERUM 136 mmol/L (136-145); TRIGLYCERIDES 84 mg/dL (30-150); UREA NITROGEN, BLOOD 39 mg/dL (7-18)
[2024-01-22 05:58] LABS: HIV-1 p24 ANTIGEN NON REACTIVE (NONREACTIVE); HIV-1/2 ANTIBODY NON REACTIVE (NONREACTIVE)
[2024-01-22] MEDS: CEFEPIME 1 GM in IV D5W 50 ML IV SCH (09:03)
[2024-01-22] MEDS ORDERED: DEXTROSE 50%-WATER 50 ML DISP.SYRIN IV PRN (09:30)
[2024-01-22] MEDS: INSULIN REGULAR, HUMAN 100 UNIT/ML 3 ML VIAL SQ PRN (12:30)
[2024-01-22] MEDS: BLOOD SUGAR DIAGNOSTIC 1 EACH STRIP VI SCH (12:31)
[2024-01-22] MEDS: VANCOMYCIN 1 GM in IV D5W 250ml IV SCH (15:10)
[2024-01-23] VITALS (23 sets, daily range): BP systolic 85–133; BP diastolic 29–105; TEMP 97.8–98.5; O2SAT 92–98
[2024-01-23 04:32] LABS: BASOPHILS # (AUTO) 0.1 K/uL (0.0-0.2); BASOPHILS % (AUTO) 0.7 % (0.0-2.0); EOSINOPHILS # (AUTO) 0.3 K/uL (0.0-0.7); EOSINOPHILS % (AUTO) 2.8 % (0.0-6.0); HEMATOCRIT 28 % (33-45); HEMOGLOBIN 9.2 g/dL (11.5-14.8); LYMPHOCYTES # (AUTO) 1.2 K/uL (0.8-4.8); LYMPHOCYTES % (AUTO) 11.5 % (20.0-44.0); MEAN CORPUSCULAR HEMOGLOBIN 28 PG (26.0-33.0); MEAN CORPUSCULAR HGB CONC 33 g/dl (31.0-36.0); MEAN CORPUSCULAR VOLUME 85 fL (82-100); MONOCYTES # (AUTO) 0.6 K/uL (0.1-1.30); MONOCYTES % (AUTO) 5.4 % (2.0-12.0); NEUTROPHILS # (AUTO) 8.6 K/uL (1.8-8.9); NEUTROPHILS % (AUTO) 79.6 % (43.0-81.0); PLATELET COUNT (AUTO) 313 K/uL (150-450); RED BLOOD CELL COUNT(AUTO) 3.26 MIL/uL (4.0-5.2); RED CELL DISTRIBUTION WIDTH 16.3 % (11.5-15.0); WHITE BLOOD COUNT (AUTO) 10.8 K/uL (4.3-11.0)
[2024-01-23 04:48] LABS: CALCIUM, SERUM 7.6 mg/dL (8.5-10.1); CARBON DIOXIDE 23 mmol/L (21-32); CHLORIDE 108 mmol/L (98-107); CREATININE 0.9 mg/dL (0.6-1.3); GLUCOSE 88 mg/dL (74-106); MAGNESIUM 2.1 mg/dL (1.8-2.4); PHOSPHORUS 3.2 mg/dL (2.5-4.9); POTASSIUM 3.5 mmol/L (3.5-5.1); SODIUM SERUM 138 mmol/L (136-145); UREA NITROGEN, BLOOD 37 mg/dL (7-18)
[2024-01-23] MEDS: VANCOMYCIN HCL 1.25 GM in IV D5W 250 ML IV SCH (15:55)
[2024-01-23] MEDS: ENSURE CLEAR 237 ML LIQUID (MIX BERRY) PO SCH (18:21)
[2024-01-24] VITALS: BP 122/81; TEMP 98; O2SAT 98
[2024-01-24 04:00] VITALS: BP 108/71; TEMP 98; O2SAT 98
[2024-01-24 07:22] LABS: CALCIUM, SERUM 8.2 mg/dL (8.5-10.1); CARBON DIOXIDE 23 mmol/L (21-32); CHLORIDE 105 mmol/L (98-107); CREATININE 0.7 mg/dL (0.6-1.3); GLUCOSE 88 mg/dL (74-106); POTASSIUM 3.3 mmol/L (3.5-5.1); SODIUM SERUM 139 mmol/L (136-145); UREA NITROGEN, BLOOD 18 mg/dL (7-18)
[2024-01-24 08:00] VITALS: BP 120/55; TEMP 97.9; O2SAT 98
[2024-01-24] MEDS: ACETAMINOPHEN 325 MG TABLET PO PRN (08:24)
[2024-01-24] MEDS: POTASSIUM CHLORIDE 20 MEQ TAB.PRT.SR PO SCH (11:16)
[2024-01-24 11:40] LABS: BASOPHILS # (AUTO) 0.1 K/uL (0.0-0.2); BASOPHILS % (AUTO) 0.7 % (0.0-2.0); EOSINOPHILS # (AUTO) 0.2 K/uL (0.0-0.7); EOSINOPHILS % (AUTO) 1.8 % (0.0-6.0); HEMATOCRIT 33 % (33-45); HEMOGLOBIN 10.7 g/dL (11.5-14.8); MEAN CORPUSCULAR HEMOGLOBIN 29 PG (26.0-33.0); MEAN CORPUSCULAR HGB CONC 33 g/dl (31.0-36.0); MEAN CORPUSCULAR VOLUME 89 fL (82-100); MONOCYTES # (AUTO) 0.7 K/uL (0.1-1.30); MONOCYTES % (AUTO) 7.6 % (2.0-12.0); NEUTROPHILS # (AUTO) 6.9 K/uL (1.8-8.9); NEUTROPHILS % (AUTO) 78.9 % (43.0-81.0); PLATELET COUNT (AUTO) 298 K/uL (150-450); RED BLOOD CELL COUNT(AUTO) 3.68 MIL/uL (4.0-5.2); RED CELL DISTRIBUTION WIDTH 17.1 % (11.5-15.0); WHITE BLOOD COUNT (AUTO) 8.7 K/uL (4.3-11.0)
[2024-01-24 11:53] LABS: CARBON DIOXIDE 23 mmol/L (21-32); CHLORIDE 105 mmol/L (98-107); CREATININE 0.7 mg/dL (0.6-1.3); GLUCOSE 105 mg/dL (74-106); POTASSIUM 3.4 mmol/L (3.5-5.1); SODIUM SERUM 137 mmol/L (136-145); UREA NITROGEN, BLOOD 17 mg/dL (7-18)
[2024-01-24 11:58] LABS: ALANINE AMINOTRANSFERASE 27 U/L (12-78); ALKALINE PHOSPHATASE 156 U/L (46-116); ASPARTATE AMINOTRANSFERASE 21 U/L (15-37)
[2024-01-24 12:00] VITALS: BP 130/60; TEMP 97.5; O2SAT 98
[2024-01-24 16:00] VITALS: BP 130/60; TEMP 97.5; O2SAT 98
[2024-01-24 20:00] VITALS: BP 135/72; TEMP 97.6; O2SAT 98
[2024-01-24] MEDS: *INSULIN REGULAR(HUMULIN R)HUM 100 UNIT/ML VIAL SQ PRN (22:32)
[2024-01-25] VITALS: BP 137/80; TEMP 98; O2SAT 96
[2024-01-25 04:00] VITALS: BP 129/62; TEMP 97.3; O2SAT 96
[2024-01-25 06:44] LABS: BASOPHILS # (AUTO) 0.1 K/uL (0.0-0.2); BASOPHILS % (AUTO) 1.1 % (0.0-2.0); EOSINOPHILS # (AUTO) 0.1 K/uL (0.0-0.7); EOSINOPHILS % (AUTO) 1.8 % (0.0-6.0); HEMATOCRIT 31 % (33-45); HEMOGLOBIN 10.4 g/dL (11.5-14.8); LYMPHOCYTES # (AUTO) 0.8 K/uL (0.8-4.8); LYMPHOCYTES % (AUTO) 11.3 % (20.0-44.0); MEAN CORPUSCULAR HEMOGLOBIN 28 PG (26.0-33.0); MEAN CORPUSCULAR HGB CONC 34 g/dl (31.0-36.0); MEAN CORPUSCULAR VOLUME 84 fL (82-100); MONOCYTES # (AUTO) 0.6 K/uL (0.1-1.30); NEUTROPHILS # (AUTO) 5.4 K/uL (1.8-8.9); NEUTROPHILS % (AUTO) 76.8 % (43.0-81.0); PLATELET COUNT (AUTO) 334 K/uL (150-450); RED BLOOD CELL COUNT(AUTO) 3.67 MIL/uL (4.0-5.2); RED CELL DISTRIBUTION WIDTH 16.5 % (11.5-15.0)
[2024-01-25 07:00] LABS: CALCIUM, SERUM 7.9 mg/dL (8.5-10.1); CARBON DIOXIDE 21 mmol/L (21-32); CHLORIDE 105 mmol/L (98-107); CREATININE 0.7 mg/dL (0.6-1.3); GLUCOSE 145 mg/dL (74-106); POTASSIUM 3.2 mmol/L (3.5-5.1); SODIUM SERUM 138 mmol/L (136-145); UREA NITROGEN, BLOOD 11 mg/dL (7-18)
[2024-01-25 07:06] LABS: ALANINE AMINOTRANSFERASE 24 U/L (12-78); ALBUMIN 1.9 g/dL (3.4-5.0); ALKALINE PHOSPHATASE 160 U/L (46-116); ASPARTATE AMINOTRANSFERASE 19 U/L (15-37); BILIRUBIN,TOTAL 0.9 mg/dL (0.2-1.0); TOTAL PROTEIN, SERUM 5.8 g/dL (6.4-8.2)
[2024-01-25] MEDS ORDERED: ANESTHESIA TRAY IN PYXIS 1 EA TRAY MC ONE (07:10)
[2024-01-25] MEDS ORDERED: IOHEXOL 50 ML IV ONE (07:10)
[2024-01-25] MEDS ORDERED: LIDOCAINE HCL/MPF 1% 30 ML VIAL IJ ONE (07:10)
[2024-01-25] MEDS ORDERED: KETAMINE HCL (500MG/10ML) 50 MG/ML VIAL ONE (07:24)
[2024-01-25] MEDS ORDERED: ALBUMIN 5% 250 ML IV ONE (07:24)
[2024-01-25] MEDS ORDERED: FENTANYL PF 100MCG/2ML AMPUL ONE (07:25)
[2024-01-25 08:00] VITALS: BP 105/64; TEMP 97.6; O2SAT 96
[2024-01-25] MEDS ORDERED: ALBUTEROL FS 2.5 MG/0.5 ML VIAL.NEB NEB PRN (10:30)
[2024-01-25] MEDS: POTASSIUM CL. PREMIX PERIPHER. 50 ML IV SCH (11:53)
[2024-01-25 12:00] VITALS: BP 135/65; TEMP 98.1; O2SAT 96
[2024-01-25 16:47] VITALS: BP 128/58; TEMP 98.1; O2SAT 96
[2024-01-25 20:00] VITALS: BP 99/54; TEMP 98.2; O2SAT 96
[2024-01-26] VITALS: BP 101/66; TEMP 98.6; O2SAT 98
[2024-01-26 04:00] VITALS: BP 109/87; TEMP 97.3; O2SAT 96
[2024-01-26 07:24] LABS: BASOPHILS # (AUTO) 0.1 K/uL (0.0-0.2); BASOPHILS % (AUTO) 1.2 % (0.0-2.0); EOSINOPHILS # (AUTO) 0.3 K/uL (0.0-0.7); EOSINOPHILS % (AUTO) 5.8 % (0.0-6.0); HEMATOCRIT 31 % (33-45); HEMOGLOBIN 10.1 g/dL (11.5-14.8); LYMPHOCYTES # (AUTO) 0.8 K/uL (0.8-4.8); LYMPHOCYTES % (AUTO) 15.5 % (20.0-44.0); MEAN CORPUSCULAR HEMOGLOBIN 28 PG (26.0-33.0); MEAN CORPUSCULAR HGB CONC 33 g/dl (31.0-36.0); MEAN CORPUSCULAR VOLUME 85 fL (82-100); MONOCYTES # (AUTO) 0.7 K/uL (0.1-1.30); MONOCYTES % (AUTO) 12.8 % (2.0-12.0); NEUTROPHILS # (AUTO) 3.5 K/uL (1.8-8.9); NEUTROPHILS % (AUTO) 64.7 % (43.0-81.0); PLATELET COUNT (AUTO) 308 K/uL (150-450); RED BLOOD CELL COUNT(AUTO) 3.59 MIL/uL (4.0-5.2); RED CELL DISTRIBUTION WIDTH 16.4 % (11.5-15.0); WHITE BLOOD COUNT (AUTO) 5.4 K/uL (4.3-11.0)
[2024-01-26 07:42] LABS: ALBUMIN 1.9 g/dL (3.4-5.0); BILIRUBIN,TOTAL 0.7 mg/dL (0.2-1.0); CALCIUM, SERUM 7.8 mg/dL (8.5-10.1); CREATININE 0.7 mg/dL (0.6-1.3); POTASSIUM 3.8 mmol/L (3.5-5.1); TOTAL PROTEIN, SERUM 5.6 g/dL (6.4-8.2)
[2024-01-26 08:00] VITALS: BP 148/71; TEMP 98.4; O2SAT 97
[2024-01-26] MEDS: GUAIFENESIN/D-METHORPHAN HB 5 ML UDC PO PRN (09:18)
[2024-01-26 12:00] VITALS: BP 131/75; TEMP 98.6; O2SAT 98
[2024-01-26] MEDS: GLUCERNA SHAKE 237 ML CAN PO SCH (12:21)
[2024-01-26 16:00] VITALS: BP 130/76; TEMP 98.6; O2SAT 98
== END 2024-01-26 17:42 | DRG 64 ==
LOC: ER 00:17 → TRANSITION 07:00 → TELE1 07:31 → TRANSITION 07:31 → ICU 11:11 → TELE1 01-23 17:45
PROVIDERS: ADMIT Nurse Practitioner Family; ATTEND Internal Medicine
PROC: 05HF33Z Insertion of Infusion Device into Left Cephalic Vein, Percutaneous Approach (ICD-10-PCS; principal; 2024-01-22)
PROC: B54NZZA Ultrasonography of Left Upper Extremity Veins, Guidance (ICD-10-PCS; 2024-01-22)
PROC: 06H03DZ Insertion of Intraluminal Device into Inferior Vena Cava, Percutaneous Approach (ICD-10-PCS; 2024-01-25)
DX: I60.9 Nontraumatic subarachnoid hemorrhage, unspecified (principal); N17.0 Acute kidney failure with tubular necrosis; N39.0 Urinary tract infection, site not specified; E87.1 Hypo-osmolality and hyponatremia; E87.20 Acidosis, unspecified; I82.411 Acute embolism and thrombosis of right femoral vein; G81.94 Hemiplegia, unspecified affecting left nondominant side; R65.10 Systemic inflammatory response syndrome (SIRS) of non-infectious origin without acute organ dysfunction; E78.5 Hyperlipidemia, unspecified; E86.1 Hypovolemia; I10 Essential (primary) hypertension; I48.91 Unspecified atrial fibrillation; Z79.01 Long term (current) use of anticoagulants; Z86.73 Personal history of transient ischemic attack (TIA), and cerebral infarction without residual deficits; Z90.710 Acquired absence of both cervix and uterus; E11.9 Type 2 diabetes mellitus without complications; Z86.718 Personal history of other venous thrombosis and embolism; Z79.51 Long term (current) use of inhaled steroids; N18.9 Chronic kidney disease, unspecified; I12.9 Hypertensive chronic kidney disease with stage 1 through stage 4 chronic kidney disease, or unspecified chronic kidney disease; Z20.822 Contact with and (suspected) exposure to COVID-19; B96.89 Other specified bacterial agents as the cause of diseases classified elsewhere; I49.3 Ventricular premature depolarization; Z86.79 Personal history of other diseases of the circulatory system
CPT/HCPCS: 36415; 70450-TC; 70496-TC; 71045-TC; 73630-TC; 74018; 76770-TC; 80048-TC; 80053-TC; 80061-TC; 80076-TC; 80202-TC; 81001; 82962-TC; 83605-TC; 83735-TC; 84100-TC; 84484-TC; 85025-TC; 85730-TC; 87040-TC; 87081-TC; 87086-TC; 87186-TC; 87806; 92526; 92611-TC; 93970-TC; A4223; C1769; C1880; G0378; J0692; J0696; J1644; J1815; J2704; J2765; J3010; J3370; J3480; J3490; J7030; J7050; J7060; J7168; P9045; Q9967

== ENCOUNTER 2024-06-05 09:04 | Inpatient (IN) | payer MEDICARE, MEDICAID ==
[~2024-06-05] VITALS: Ht 149.9 cm; Wt 78.2 kg
[2024-06-05] VITALS (7 sets, daily range): BP systolic 123–148; BP diastolic 67–116; TEMP 97.5–98.2; O2SAT 91–99
[~2024-06-05 09:04] MED LIST changes: +ACET-868 PO; -APIX5TAB PO; +ASCO-340 PO; +CRAN3875 PO; +DOCU100C36 PO; +FLUT1BLS IH; -FLUT1DIS IH; -GLIP1TAB6 PO; +INSU100V39 SQ; +INSU100V7 SQ; +IPRA3AMP22 IH; +LACT1CAP7 PO; +MAGN400O6 PO; -METO-357 PO; +METO50TA16 PO; +MULT-213 PO
[2024-06-05 09:32] LABS: BASOPHILS # (AUTO) 0.1 K/uL (0.0-0.2); BASOPHILS % (AUTO) 0.9 % (0.0-2.0); EOSINOPHILS # (AUTO) 0.2 K/uL (0.0-0.7); EOSINOPHILS % (AUTO) 2.4 % (0.0-6.0); HEMATOCRIT 38 % (33-45); HEMOGLOBIN 12.2 g/dL (11.5-14.8); LYMPHOCYTES # (AUTO) 2.4 K/uL (0.8-4.8); MEAN CORPUSCULAR HEMOGLOBIN 27 PG (26.0-33.0); MEAN CORPUSCULAR HGB CONC 33 g/dl (31.0-36.0); MEAN CORPUSCULAR VOLUME 83 fL (82-100); MONOCYTES # (AUTO) 0.6 K/uL (0.1-1.30); MONOCYTES % (AUTO) 7.9 % (2.0-12.0); NEUTROPHILS # (AUTO) 4.9 K/uL (1.8-8.9); NEUTROPHILS % (AUTO) 59.8 % (43.0-81.0); PLATELET COUNT (AUTO) 342 K/uL (150-450); RED BLOOD CELL COUNT(AUTO) 4.53 MIL/uL (4.0-5.2); RED CELL DISTRIBUTION WIDTH 17.5 % (11.5-15.0); WHITE BLOOD COUNT (AUTO) 8.2 K/uL (4.3-11.0)
[2024-06-05 09:50] LABS: CALCIUM, SERUM 9.4 mg/dL (8.5-10.1); CARBON DIOXIDE 25 mmol/L (21-32); CHLORIDE 99 mmol/L (98-107); GLUCOSE 140 mg/dL (74-106); POTASSIUM 3.9 mmol/L (3.5-5.1); SODIUM SERUM 134 mmol/L (136-145); UREA NITROGEN, BLOOD 22 mg/dL (7-18)
[2024-06-05] MEDS ORDERED: SUMA50TA PO (10:07)
[2024-06-05] MEDS ORDERED: CYAN100T9 PO (10:07)
[2024-06-05] MEDS ORDERED: GLIP1TAB6 PO ×2 (10:07)
[2024-06-05] MEDS ORDERED: FLUT1DIS IH (10:07)
[2024-06-05] MEDS ORDERED: METH1TAB PO (10:07)
[2024-06-05] MEDS ORDERED: APIX5TAB PO (10:07)
[2024-06-05] MEDS: methylPREDNISolone SOD SUCC 125 MG/2ML VIAL IV ONE (10:30)
[2024-06-05] MEDS ORDERED: methylPREDNISolone SOD SUCC 125 MG/2ML VIAL ONE (10:30)
[2024-06-05] MEDS ORDERED: IPRATROPIUM NEB FS 0.5 MG/2.5 ML AMPUL.NEB ONE (10:39)
[2024-06-05] MEDS ORDERED: ALBUTEROL FS 2.5 MG/3 ML VIAL.NEB ONE (10:39)
[2024-06-05] MEDS: IPRATROPIUM NEB FS 0.5 MG/2.5 ML AMPUL.NEB NEB ONE (10:41)
[2024-06-05] MEDS: ALBUTEROL FS 2.5 MG/3 ML VIAL.NEB CONTNEB ONE (10:41)
[2024-06-05] MEDS ORDERED: MAGNESIUM HYDROXIDE 30 ML UDC PO PRN (13:30)
[2024-06-05] MEDS ORDERED: ONDANSETRON HCL/PF 4 MG/2 ML VIAL IVP PRN (13:30)
[2024-06-05] MEDS ORDERED: DEXTROSE 50%-WATER 50 ML DISP.SYRIN IV PRN (13:30)
[2024-06-05] MEDS ORDERED: MAG HYDROX/AL HYDROX/SIMETH 30 ML UDC PO PRN (13:30)
[2024-06-05] MEDS ORDERED: ZOLPIDEM TARTRATE 5 MG TABLET PO PRN (13:30)
[2024-06-05] MEDS ORDERED: ALBUTEROL FS 2.5 MG/3 ML VIAL.NEB NEB PRN (14:30)
[2024-06-05] MEDS ORDERED: FLUTICASONE/SALMETEROL 1 DISK IH SCH (15:00)
[2024-06-05] MEDS: LEVOFLOXACIN 500 MG /D5W 100ML 500 MG in PREMIX 1 EA IV ONE (15:26)
[2024-06-05] MEDS: FUROSEMIDE 20 MG/2 ML VIAL IV ONE (15:26)
[2024-06-05] MEDS ORDERED: METHENAMINE HIPPURATE 1 GM PO SCH (17:00)
[2024-06-05] MEDS ORDERED: Medication Not On Formulary EA (Icosapent Ethyl (Vascepa) 2 GM) PO SCH (17:00)
[2024-06-05] MEDS: APIXABAN 5 MG TABLET PO SCH (17:02)
[2024-06-05] MEDS: INSULIN REGULAR, HUMAN 100 UNIT/ML 3 ML VIAL SQ PRN (17:22)
[2024-06-05] MEDS: BLOOD SUGAR DIAGNOSTIC 1 EACH STRIP VI SCH (17:29)
[2024-06-05] MEDS: methylPREDNISolone SOD SUCC 125 MG/2ML VIAL IV SCH (20:06)
[2024-06-05] MEDS: IPRATROPIUM NEB FS 0.5 MG/2.5 ML AMPUL.NEB NEB SCH (20:12)
[2024-06-05] MEDS: ALBUTEROL FS 2.5 MG/3 ML VIAL.NEB NEB SCH (20:12)
[2024-06-05] MEDS: ATORVASTATIN 40 MG TABLET PO SCH (21:20)
[2024-06-05] MEDS: *INSULIN REGULAR(HUMULIN R)HUM 100 UNIT/ML VIAL SQ PRN (21:40)
[2024-06-06] VITALS (18 sets, daily range): BP systolic 102–122; BP diastolic 47–82; TEMP 97.2–99.5; O2SAT 95–98
[2024-06-06 06:29] LABS: BASOPHILS % (AUTO) 0.1 % (0.0-2.0); HEMATOCRIT 32 % (33-45); HEMOGLOBIN 10.6 g/dL (11.5-14.8); LYMPHOCYTES # (AUTO) 0.7 K/uL (0.8-4.8); LYMPHOCYTES % (AUTO) 16.1 % (20.0-44.0); MEAN CORPUSCULAR HEMOGLOBIN 28 PG (26.0-33.0); MEAN CORPUSCULAR HGB CONC 33 g/dl (31.0-36.0); MEAN CORPUSCULAR VOLUME 83 fL (82-100); MONOCYTES # (AUTO) 0.3 K/uL (0.1-1.30); MONOCYTES % (AUTO) 5.8 % (2.0-12.0); NEUTROPHILS # (AUTO) 3.5 K/uL (1.8-8.9); PLATELET COUNT (AUTO) 301 K/uL (150-450); RED BLOOD CELL COUNT(AUTO) 3.83 MIL/uL (4.0-5.2); RED CELL DISTRIBUTION WIDTH 18.2 % (11.5-15.0); WHITE BLOOD COUNT (AUTO) 4.5 K/uL (4.3-11.0)
[2024-06-06 06:55] LABS: CALCIUM, SERUM 9.7 mg/dL (8.5-10.1); CARBON DIOXIDE 26 mmol/L (21-32); CHLORIDE 102 mmol/L (98-107); CREATININE 0.8 mg/dL (0.6-1.3); GLUCOSE 225 mg/dL (74-106); MAGNESIUM 1.6 mg/dL (1.8-2.4); PHOSPHORUS 3.8 mg/dL (2.5-4.9); POTASSIUM 4.6 mmol/L (3.5-5.1); SODIUM SERUM 140 mmol/L (136-145); UREA NITROGEN, BLOOD 25 mg/dL (7-18)
[2024-06-06] MEDS: ACETAMINOPHEN 325 MG TABLET PO PRN (08:36)
[2024-06-06] MEDS: CYANOCOBALAMIN 100 MCG TABLET PO SCH (08:36)
[2024-06-06] MEDS: NORTRIPTYLINE HCL 25 MG CAPSULE PO SCH (08:37)
[2024-06-06] MEDS: HYDROCHLOROTHIAZIDE 25 MG TABLET PO SCH (08:41)
[2024-06-06] MEDS: AMLODIPINE BESYLATE 10 MG TABLET PO SCH (08:42)
[2024-06-06] MEDS: LOSARTAN POTASSIUM 50 MG TABLET PO SCH (08:42)
[2024-06-06] MEDS ORDERED: IPRATROPIUM NEB FS 0.5 MG/2.5 ML AMPUL.NEB NEB SCH (09:30)
[2024-06-06] MEDS: MAGNESIUM OXIDE 400 MG TABLET PO ONE (09:49)
[2024-06-06] MEDS: FLUTICASONE/VILANTEROL 1 EACH BLST.W.DEV IH SCH (09:49)
[2024-06-06] MEDS: methylPREDNISolone SOD SUCC 125 MG/2ML VIAL IV SCH (09:50)
[2024-06-06] MEDS: LEVOFLOXACIN 250 MG /D5W 50 ML 250 MG in PREMIX 1 EA IV SCH (13:02)
[2024-06-06] MEDS: PANTOPRAZOLE 40 MG TABLET.DR PO SCH (22:36)
[2024-06-07] VITALS (14 sets, daily range): BP systolic 89–122; BP diastolic 57–79; TEMP 97.5–97.9; O2SAT 93–98
[2024-06-07 07:16] LABS: BASOPHILS % (AUTO) 0.1 % (0.0-2.0); HEMATOCRIT 31 % (33-45); HEMOGLOBIN 10.4 g/dL (11.5-14.8); LYMPHOCYTES # (AUTO) 0.9 K/uL (0.8-4.8); LYMPHOCYTES % (AUTO) 9.1 % (20.0-44.0); MEAN CORPUSCULAR HEMOGLOBIN 28 PG (26.0-33.0); MEAN CORPUSCULAR HGB CONC 34 g/dl (31.0-36.0); MEAN CORPUSCULAR VOLUME 83 fL (82-100); MONOCYTES # (AUTO) 0.8 K/uL (0.1-1.30); MONOCYTES % (AUTO) 7.8 % (2.0-12.0); NEUTROPHILS # (AUTO) 8.2 K/uL (1.8-8.9); PLATELET COUNT (AUTO) 286 K/uL (150-450); RED BLOOD CELL COUNT(AUTO) 3.71 MIL/uL (4.0-5.2); WHITE BLOOD COUNT (AUTO) 9.9 K/uL (4.3-11.0)
[2024-06-07 07:38] LABS: CALCIUM, SERUM 9.1 mg/dL (8.5-10.1); CARBON DIOXIDE 27 mmol/L (21-32); CHLORIDE 101 mmol/L (98-107); CREATININE 0.8 mg/dL (0.6-1.3); GLUCOSE 210 mg/dL (74-106); MAGNESIUM 2.1 mg/dL (1.8-2.4); POTASSIUM 4.6 mmol/L (3.5-5.1); SODIUM SERUM 136 mmol/L (136-145); UREA NITROGEN, BLOOD 27 mg/dL (7-18)
[2024-06-07] MEDS: Z GUARD REMEDY 4 OZ OINT TP PRN (10:07)
[2024-06-07] MEDS ORDERED: IPRA0.2S9 NEB (12:01)
[2024-06-07] MEDS ORDERED: FLUT1BLS IH (12:01)
[2024-06-07] MEDS ORDERED: ALBUT2 NEB (12:01)
[2024-06-07] MEDS ORDERED: PRED20TA PO (12:01)
[2024-06-07] MEDS ORDERED: LEVO500T90 PO (12:01)
[2024-06-07] MEDS ORDERED: SPIR25TA PO (14:40)
[2024-06-08] MEDS ORDERED: methylPREDNISolone SOD SUCC 40 MG/ML VIAL IV SCH (09:00)
== END 2024-06-07 18:08 | disposition home health service (06) | DRG 193 ==
LOC: ER 10:35 → TELE 12:07
PROVIDERS: ADMIT Nurse Practitioner Acute Care; ATTEND Nurse Practitioner Acute Care
DX: J15.9 Unspecified bacterial pneumonia (principal); I50.33 Acute on chronic diastolic (congestive) heart failure; J45.901 Unspecified asthma with (acute) exacerbation; I48.20 Chronic atrial fibrillation, unspecified; I69.354 Hemiplegia and hemiparesis following cerebral infarction affecting left non-dominant side; J44.0 Chronic obstructive pulmonary disease with (acute) lower respiratory infection; I11.0 Hypertensive heart disease with heart failure; Z95.5 Presence of coronary angioplasty implant and graft; E11.9 Type 2 diabetes mellitus without complications; E66.9 Obesity, unspecified; E78.5 Hyperlipidemia, unspecified; E83.42 Hypomagnesemia; I25.2 Old myocardial infarction; I25.10 Atherosclerotic heart disease of native coronary artery without angina pectoris; Z79.01 Long term (current) use of anticoagulants; Z90.710 Acquired absence of both cervix and uterus; G47.33 Obstructive sleep apnea (adult) (pediatric); Z68.34 Body mass index [BMI] 34.0-34.9, adult; Z20.822 Contact with and (suspected) exposure to COVID-19; Z79.84 Long term (current) use of oral hypoglycemic drugs
CPT/HCPCS: 36415; 71045-TC; 80048-TC; 82962-TC; 83735-TC; 83880; 84100-TC; 84484-TC; 85025-TC; 93307-TC; 94760-TC; 94799-TC; 97112-TC; 97116-TC; 97530-TC; A4216; G0378; J1815; J1940; J1956; J2919

== ENCOUNTER 2024-06-25 07:45 | Emergency (ER) | payer MEDICARE, MEDICAID ==
[~2024-06-25] VITALS: Ht 149.9 cm; Wt 77.6 kg
[~2024-06-25 07:45] MED LIST changes: -ACET-868 PO; +ALBUT2 NEB; +APIX5TAB PO; -ASCO-340 PO; -CRAN3875 PO; +CYAN100T9 PO; -DOCU100C36 PO; +FLUT1DIS IH; +GLIP1TAB6 PO; -INSU100V39 SQ; -INSU100V7 SQ; +IPRA0.2S9 NEB; -IPRA3AMP22 IH; -LACT1CAP7 PO; +LEVO500T90 PO; -MAGN400O6 PO; +METH1TAB PO; -MULT-213 PO; +PRED20TA PO; +SPIR25TA PO; +SUMA50TA PO
[2024-06-25] MEDS ORDERED: ACETAMINOPHEN 325 MG TABLET ONE (08:02)
[2024-06-25] MEDS: ACETAMINOPHEN 325 MG TABLET PO ONE (08:22)
[2024-06-25 08:37] LABS: BASOPHILS # (AUTO) 0.1 K/uL (0.0-0.2); BASOPHILS % (AUTO) 1.3 % (0.0-2.0); EOSINOPHILS # (AUTO) 0.1 K/uL (0.0-0.7); EOSINOPHILS % (AUTO) 2.5 % (0.0-6.0); HEMATOCRIT 33 % (33-45); HEMOGLOBIN 10.9 g/dL (11.5-14.8); LYMPHOCYTES # (AUTO) 1.6 K/uL (0.8-4.8); LYMPHOCYTES % (AUTO) 26.4 % (20.0-44.0); MEAN CORPUSCULAR HEMOGLOBIN 28 PG (26.0-33.0); MEAN CORPUSCULAR HGB CONC 33 g/dl (31.0-36.0); MEAN CORPUSCULAR VOLUME 84 fL (82-100); MONOCYTES # (AUTO) 0.5 K/uL (0.1-1.30); MONOCYTES % (AUTO) 8.7 % (2.0-12.0); NEUTROPHILS # (AUTO) 3.6 K/uL (1.8-8.9); NEUTROPHILS % (AUTO) 61.1 % (43.0-81.0); PLATELET COUNT (AUTO) 280 K/uL (150-450); RED BLOOD CELL COUNT(AUTO) 3.94 MIL/uL (4.0-5.2); RED CELL DISTRIBUTION WIDTH 19.1 % (11.5-15.0); WHITE BLOOD COUNT (AUTO) 5.9 K/uL (4.3-11.0)
[2024-06-25 08:46] LABS: CALCIUM, SERUM 8.9 mg/dL (8.5-10.1); CARBON DIOXIDE 22 mmol/L (21-32); CHLORIDE 102 mmol/L (98-107); CREATININE 0.8 mg/dL (0.6-1.3); GLUCOSE 94 mg/dL (74-106); POTASSIUM 4.9 mmol/L (3.5-5.1); SODIUM SERUM 135 mmol/L (136-145); UREA NITROGEN, BLOOD 26 mg/dL (7-18)
[2024-06-25 08:58] LABS: INR 1.03 (0.91-1.10); PARTIAL THROMBOPLASTIN TIME 24.6 SEC (24.3-34.3); PROTHROMBIN TIME 10.9 SECS (9.2-11.1)
[2024-06-25 08:59] LABS: ALANINE AMINOTRANSFERASE 30 U/L (12-78); ALKALINE PHOSPHATASE 64 U/L (46-116); ASPARTATE AMINOTRANSFERASE 17 U/L (15-37); BILIRUBIN,DIRECT 0.2 mg/dL (0.0-0.2); BILIRUBIN,TOTAL 0.9 mg/dL (0.2-1.0); NT-PRO BNP 2313 pg/mL (0-125)
[2024-06-25] MEDS ORDERED: AMOX-430 PO (13:30)
[2024-06-25 13:49] VITALS: BP 118/68; TEMP 98.8; O2SAT 99
== END 2024-06-25 14:14 | disposition home or self-care (01) ==
LOC: ER 07:47
DX: R06.02 Shortness of breath (principal); I10 Essential (primary) hypertension; E11.9 Type 2 diabetes mellitus without complications; I48.91 Unspecified atrial fibrillation; J45.909 Unspecified asthma, uncomplicated; Z87.891 Personal history of nicotine dependence; Z90.710 Acquired absence of both cervix and uterus; Z20.822 Contact with and (suspected) exposure to COVID-19; Z86.73 Personal history of transient ischemic attack (TIA), and cerebral infarction without residual deficits
CPT/HCPCS: 36415; 71045-TC; 80048-TC; 80076-TC; 83880; 84484-TC; 85025-TC; 85730-TC

== ENCOUNTER 2024-07-26 06:52 | Inpatient (IN) | payer MEDICARE, MEDICAID ==
[~2024-07-26] VITALS: Ht 157.5 cm; Wt 83.5 kg
[2024-07-26] VITALS (10 sets, daily range): BP systolic 101–108; BP diastolic 54–62; TEMP 98.2–98.4; O2SAT 94–100
[~2024-07-26 06:52] MED LIST changes: +AMOX-430 PO
[2024-07-26] MEDS: IV NS 0.9% 1,000 ML BAG IV ONE (07:16)
[2024-07-26 07:27] LABS: BASOPHILS # (AUTO) 0.1 K/uL (0.0-0.2); BASOPHILS % (AUTO) 1.1 % (0.0-2.0); EOSINOPHILS # (AUTO) 0.2 K/uL (0.0-0.7); EOSINOPHILS % (AUTO) 3.1 % (0.0-6.0); HEMATOCRIT 32 % (33-45); HEMOGLOBIN 10.5 g/dL (11.5-14.8); LYMPHOCYTES # (AUTO) 1.6 K/uL (0.8-4.8); LYMPHOCYTES % (AUTO) 26.4 % (20.0-44.0); MEAN CORPUSCULAR HEMOGLOBIN 27 PG (26.0-33.0); MEAN CORPUSCULAR HGB CONC 33 g/dl (31.0-36.0); MEAN CORPUSCULAR VOLUME 82 fL (82-100); MONOCYTES # (AUTO) 0.6 K/uL (0.1-1.30); MONOCYTES % (AUTO) 10.6 % (2.0-12.0); NEUTROPHILS # (AUTO) 3.5 K/uL (1.8-8.9); NEUTROPHILS % (AUTO) 58.8 % (43.0-81.0); PLATELET COUNT (AUTO) 273 K/uL (150-450); RED CELL DISTRIBUTION WIDTH 18.8 % (11.5-15.0); WHITE BLOOD COUNT (AUTO) 5.9 K/uL (4.3-11.0)
[2024-07-26 07:39] LABS: INR 1.1 (0.91-1.10); PARTIAL THROMBOPLASTIN TIME 22.8 SEC (24.3-34.3); PROTHROMBIN TIME 11.6 SECS (9.2-11.1)
[2024-07-26 07:40] LABS: CARBON DIOXIDE 26 mmol/L (21-32); CHLORIDE 100 mmol/L (98-107); GLUCOSE 103 mg/dL (74-106); POTASSIUM 3.7 mmol/L (3.5-5.1); SODIUM SERUM 136 mmol/L (136-145); UREA NITROGEN, BLOOD 26 mg/dL (7-18)
[2024-07-26 07:58] LABS: ALANINE AMINOTRANSFERASE 26 U/L (12-78); ALBUMIN 3.3 g/dL (3.4-5.0); ALKALINE PHOSPHATASE 58 U/L (46-116); ASPARTATE AMINOTRANSFERASE 19 U/L (15-37); BILIRUBIN,DIRECT 0.2 mg/dL (0.0-0.2); NT-PRO BNP 4743 pg/mL (0-125)
[2024-07-26 07:59] LABS: LACTIC ACID 3.4 mmol/L (0.4-2.0)
[2024-07-26] MEDS: CEFEPIME 1 GM in IV D5W 50 ML IV ONE (08:16)
[2024-07-26] MEDS ORDERED: FLUT1DIS3 IH (08:17)
[2024-07-26] MEDS ORDERED: ACET-2812 PO (08:17)
[2024-07-26] MEDS ORDERED: ALBU2.5V38 IH (08:17)
[2024-07-26] MEDS ORDERED: DAPA10TA PO (08:17)
[2024-07-26 09:27] LABS: APPEARANCE,URINE SLIGHTLY CLOUDY (CLEAR); BILIRUBIN,URINE NEGATIVE (NEGATIVE); BLOOD, URINE TRACE-INTA Ery/uL (NEGATIVE); COLOR,URINE YELLOW (YELLOW); KETONES,URINE NEGATIVE (NEGATIVE); LEUKOCYTE ESTERASE ,URINE 1+ (NEGATIVE); NITRITE, URINE NEGATIVE (NEGATIVE); PROTEIN,URINE NEGATIVE (NEGATIVE); UGLUCOSE 1+ mg/dL (NEGATIVE); UROBILINOGEN,URINE 0.2 EU/dL (0.2)
[2024-07-26 09:28] LABS: ADD URINE CULTURE YES; BACTERIA,URINE Few /HPF (None Seen); SQUAMOUS EPITHELIAL CELL,UR Rare /HPF (None Seen)
[2024-07-26] MEDS ORDERED: IPRATROPIUM NEB FS 0.5 MG/2.5 ML AMPUL.NEB ONE (10:52)
[2024-07-26] MEDS ORDERED: ALBUTEROL FS 2.5 MG/3 ML VIAL.NEB ONE (10:52)
[2024-07-26] MEDS: ALBUTEROL FS 2.5 MG/3 ML VIAL.NEB NEB ONE (11:06)
[2024-07-26] MEDS: IPRATROPIUM NEB FS 0.5 MG/2.5 ML AMPUL.NEB NEB ONE (11:06)
[2024-07-26] MEDS ORDERED: Z GUARD REMEDY 4 OZ OINT TP PRN (12:00)
[2024-07-26] MEDS ORDERED: ZOLPIDEM TARTRATE 5 MG TABLET PO PRN (12:00)
[2024-07-26] MEDS: ENOXAPARIN SODIUM 40 MG/0.4 ML DISP.SYRIN SQ SCH (12:30)
[2024-07-26] MEDS ORDERED: ENOXAPARIN SODIUM 40 MG/0.4 ML DISP.SYRIN SQ ONE (12:44)
[2024-07-26] MEDS ORDERED: methylPREDNISolone SOD SUCC 125 MG/2ML VIAL ONE (13:11)
[2024-07-26] MEDS ORDERED: ACETAMINOPHEN 325 MG TABLET ONE ×2 (13:11→13:12)
[2024-07-26] MEDS: ACETAMINOPHEN 325 MG TABLET PO PRN (13:12)
[2024-07-26] MEDS: methylPREDNISolone SOD SUCC 125 MG/2ML VIAL IV SCH (13:14)
[2024-07-26 13:53] LABS: ABG BASE EXCESS 0.7 mmol/L (-2.0-3.0); ABG OXYGEN SATURATION 95.7 % (94.0-98.0); ABG PCO2 33.3 mmHg (32.0-45.0); ABG PH 7.473 (7.350-7.450); ABG TOTAL HEMOGLOBIN 11.3 G/dL (12.0-16.0); COHb 0.2 % (0.5-1.5); MetHb 0.2 % (0.0-1.5); O2Hb 95.3 % (94.0-97.0); SITE, ABG Right Radial; VENT MODE, BG NASAL CANNULA
[2024-07-26] MEDS: ALBUTEROL FS 2.5 MG/0.5 ML VIAL.NEB NEB SCH (15:26)
[2024-07-26] MEDS: IPRATROPIUM NEB FS 0.5 MG/2.5 ML AMPUL.NEB NEB SCH (15:26)
[2024-07-26] MEDS: CEFEPIME 2 GM in IV D5W 100 ML IV SCH (20:46)
[2024-07-26] MEDS ORDERED: IPRATROPIUM NEB FS 0.5 MG/2.5 ML AMPUL.NEB NEB PRN (22:00)
[2024-07-26] MEDS: ALBUTEROL FS 2.5 MG/0.5 ML VIAL.NEB NEB PRN (23:21)
[2024-07-27] VITALS (20 sets, daily range): BP systolic 94–112; BP diastolic 67–83; TEMP 97.3–98.3; O2SAT 94–100
[2024-07-27] MEDS: MAG HYDROX/AL HYDROX/SIMETH 30 ML UDC PO PRN (05:20)
[2024-07-27 07:05] LABS: BASOPHILS % (AUTO) 0.5 % (0.0-2.0); HEMATOCRIT 33 % (33-45); HEMOGLOBIN 10.5 g/dL (11.5-14.8); LYMPHOCYTES # (AUTO) 0.6 K/uL (0.8-4.8); LYMPHOCYTES % (AUTO) 22.1 % (20.0-44.0); MEAN CORPUSCULAR HEMOGLOBIN 26 PG (26.0-33.0); MEAN CORPUSCULAR HGB CONC 32 g/dl (31.0-36.0); MEAN CORPUSCULAR VOLUME 82 fL (82-100); MONOCYTES # (AUTO) 0.1 K/uL (0.1-1.30); MONOCYTES % (AUTO) 5.1 % (2.0-12.0); NEUTROPHILS # (AUTO) 1.8 K/uL (1.8-8.9); NEUTROPHILS % (AUTO) 72.3 % (43.0-81.0); PLATELET COUNT (AUTO) 279 K/uL (150-450); RED BLOOD CELL COUNT(AUTO) 3.98 MIL/uL (4.0-5.2); RED CELL DISTRIBUTION WIDTH 18.9 % (11.5-15.0); WHITE BLOOD COUNT (AUTO) 2.5 K/uL (4.3-11.0)
[2024-07-27 07:22] LABS: CALCIUM, SERUM 9.1 mg/dL (8.5-10.1); CARBON DIOXIDE 23 mmol/L (21-32); CHLORIDE 103 mmol/L (98-107); CREATININE 0.8 mg/dL (0.6-1.3); GLUCOSE 256 mg/dL (74-106); MAGNESIUM 1.6 mg/dL (1.8-2.4); POTASSIUM 4.1 mmol/L (3.5-5.1); SODIUM SERUM 140 mmol/L (136-145); UREA NITROGEN, BLOOD 26 mg/dL (7-18)
[2024-07-27] MEDS: PANTOPRAZOLE 40 MG TABLET.DR PO SCH (07:33)
[2024-07-27] MEDS: ALBUTEROL FS 2.5 MG/0.5 ML VIAL.NEB IH PRN (07:40)
[2024-07-27] MEDS: FUROSEMIDE 20 MG/2 ML VIAL IV ONE (08:30)
[2024-07-27] MEDS: POTASSIUM CHLORIDE 20 MEQ TAB.PRT.SR PO ONE (08:30)
[2024-07-27] MEDS: LOSARTAN POTASSIUM 50 MG TABLET PO SCH (09:00)
[2024-07-27] MEDS: APIXABAN 5 MG TABLET PO SCH (10:14)
[2024-07-27] MEDS: FLUTICASONE/VILANTEROL 1 EACH BLST.W.DEV IH SCH (10:14)
[2024-07-27] MEDS: DAPAGLIFLOZIN PROPANEDIOL 5 MG TABLET PO SCH (10:30)
[2024-07-27] MEDS: ALBUTEROL FS 2.5 MG/0.5 ML VIAL.NEB NEB SCH (11:48)
[2024-07-27] MEDS: MAGNESIUM OXIDE 400 MG TABLET PO ONE (12:14)
[2024-07-27] MEDS ORDERED: ACETAMINOPHEN ES 500 MG TABLET PO PRN (16:00)
[2024-07-27] MEDS ORDERED: ALBUTEROL FS 2.5 MG/3 ML VIAL.NEB IH SCH (16:00)
[2024-07-27] MEDS ORDERED: FLUTICASONE/SALMETEROL 1 DISK IH SCH (16:00)
[2024-07-27] MEDS ORDERED: Medication Not On Formulary EA (Acetaminophen (Acetaminophen Er) 650 MG) PO PRN (16:00)
[2024-07-27] MEDS ORDERED: SUMATRIPTAN SUCCINATE 25 MG TABLET PO PRN (16:30)
[2024-07-27] MEDS: ICOSAPENT ETHYL 1 GM PO SCH (17:00)
[2024-07-27] MEDS: METOPROLOL SUCCINATE 50 MG TAB.SR.24H PO SCH (17:00)
[2024-07-27] MEDS: NORTRIPTYLINE HCL 25 MG CAPSULE PO SCH (21:32)
[2024-07-27] MEDS: ATORVASTATIN 40 MG TABLET PO SCH (21:32)
[2024-07-27] MEDS: AMLODIPINE BESYLATE 10 MG TABLET PO SCH (22:30)
[2024-07-28] VITALS (60 sets, daily range): BP systolic 102–143; BP diastolic 53–131; TEMP 97.1–98.7; O2SAT 94–100
[2024-07-28 07:52] LABS: HEMATOCRIT 32 % (33-45); HEMOGLOBIN 10.2 g/dL (11.5-14.8); LYMPHOCYTES # (AUTO) 0.3 K/uL (0.8-4.8); MEAN CORPUSCULAR HEMOGLOBIN 26 PG (26.0-33.0); MEAN CORPUSCULAR HGB CONC 32 g/dl (31.0-36.0); MEAN CORPUSCULAR VOLUME 83 fL (82-100); MONOCYTES # (AUTO) 0.4 K/uL (0.1-1.30); MONOCYTES % (AUTO) 5.7 % (2.0-12.0); NEUTROPHILS % (AUTO) 89.3 % (43.0-81.0); PLATELET COUNT (AUTO) 297 K/uL (150-450); RED BLOOD CELL COUNT(AUTO) 3.88 MIL/uL (4.0-5.2); RED CELL DISTRIBUTION WIDTH 19.3 % (11.5-15.0); WHITE BLOOD COUNT (AUTO) 6.7 K/uL (4.3-11.0)
[2024-07-28 08:28] LABS: ALANINE AMINOTRANSFERASE 60 U/L (12-78); ALBUMIN 3.6 g/dL (3.4-5.0); ALKALINE PHOSPHATASE 61 U/L (46-116); ASPARTATE AMINOTRANSFERASE 38 U/L (15-37); BILIRUBIN,TOTAL 1.1 mg/dL (0.2-1.0); CARBON DIOXIDE 26 mmol/L (21-32); CHLORIDE 99 mmol/L (98-107); CREATININE 1.1 mg/dL (0.6-1.3); GLUCOSE 319 mg/dL (74-106); MAGNESIUM 2.3 mg/dL (1.8-2.4); SODIUM SERUM 135 mmol/L (136-145); TOTAL PROTEIN, SERUM 7.5 g/dL (6.4-8.2); UREA NITROGEN, BLOOD 31 mg/dL (7-18)
[2024-07-28] MEDS: HYDROCHLOROTHIAZIDE 25 MG TABLET PO SCH (08:39)
[2024-07-28] MEDS: CYANOCOBALAMIN 100 MCG TABLET PO SCH (08:52)
[2024-07-28] MEDS: METHENAMINE HIPPURATE 1 GM PO SCH (09:00)
[2024-07-28] MEDS: CEFEPIME 1 GM in IV D5W 50 ML IV SCH (09:03)
[2024-07-28] MEDS: IV NS 0.9% 1,000 ML BAG IV ONE (10:45)
[2024-07-28] MEDS: ONDANSETRON HCL/PF 4 MG/2 ML VIAL IVP PRN (11:07)
[2024-07-28] MEDS: INSULIN REGULAR, HUMAN 100 UNIT/ML 10 ML VIAL IV ONE (11:12)
[2024-07-28] MEDS: BLOOD SUGAR DIAGNOSTIC 1 EACH STRIP IN SCH (11:12)
[2024-07-28 11:13] LABS: HEMATOCRIT 34 % (33-45); HEMOGLOBIN 10.2 g/dL (11.5-14.8); LYMPHOCYTES # (AUTO) 0.4 K/uL (0.8-4.8); LYMPHOCYTES % (AUTO) 5.3 % (20.0-44.0); MEAN CORPUSCULAR HEMOGLOBIN 26 PG (26.0-33.0); MEAN CORPUSCULAR HGB CONC 30 g/dl (31.0-36.0); MEAN CORPUSCULAR VOLUME 87 fL (82-100); MONOCYTES # (AUTO) 0.5 K/uL (0.1-1.30); MONOCYTES % (AUTO) 6.3 % (2.0-12.0); NEUTROPHILS # (AUTO) 6.7 K/uL (1.8-8.9); NEUTROPHILS % (AUTO) 88.4 % (43.0-81.0); PLATELET COUNT (AUTO) 301 K/uL (150-450); RED BLOOD CELL COUNT(AUTO) 3.95 MIL/uL (4.0-5.2); RED CELL DISTRIBUTION WIDTH 20.1 % (11.5-15.0); WHITE BLOOD COUNT (AUTO) 7.6 K/uL (4.3-11.0)
[2024-07-28 11:35] LABS: CARBON DIOXIDE 11 mmol/L (21-32); CHLORIDE 94 mmol/L (98-107); CREATININE 1.8 mg/dL (0.6-1.3); SODIUM SERUM 131 mmol/L (136-145); UREA NITROGEN, BLOOD 35 mg/dL (7-18)
[2024-07-28] MEDS: INSULIN REGULAR, HUMAN 100 UNIT in IV NS 0.9% 99 ML IV PRN (11:36)
[2024-07-28 12:07] LABS: GLUCOSE 669 mg/dL (74-106)
[2024-07-28] MEDS: DIGOXIN INJ 0.5 MG/2 ML AMPUL IV SCH (12:13)
[2024-07-28] MEDS: IV NS 0.9% 1,000 ML IV ONE (12:30)
[2024-07-28 15:02] LABS: CARBON DIOXIDE 20 mmol/L (21-32); CHLORIDE 99 mmol/L (98-107); CREATININE 1.5 mg/dL (0.6-1.3); POTASSIUM 3.7 mmol/L (3.5-5.1); SODIUM SERUM 134 mmol/L (136-145); UREA NITROGEN, BLOOD 36 mg/dL (7-18)
[2024-07-28 15:07] LABS: GLUCOSE 423 mg/dL (74-106)
[2024-07-28 18:24] LABS: CALCIUM, SERUM 9.1 mg/dL (8.5-10.1); CARBON DIOXIDE 23 mmol/L (21-32); CHLORIDE 101 mmol/L (98-107); GLUCOSE 181 mg/dL (74-106); POTASSIUM 3.9 mmol/L (3.5-5.1); SODIUM SERUM 136 mmol/L (136-145); UREA NITROGEN, BLOOD 35 mg/dL (7-18)
[2024-07-28] MEDS: MAGNESIUM HYDROXIDE 30 ML UDC PO PRN (18:33)
[2024-07-29] VITALS (29 sets, daily range): BP systolic 90–128; BP diastolic 58–93; TEMP 97.3–97.9; O2SAT 94–100
[2024-07-29 01:31] LABS: CARBON DIOXIDE 18 mmol/L (21-32); CHLORIDE 101 mmol/L (98-107); GLUCOSE 157 mg/dL (74-106); POTASSIUM 4.2 mmol/L (3.5-5.1); SODIUM SERUM 137 mmol/L (136-145); UREA NITROGEN, BLOOD 36 mg/dL (7-18)
[2024-07-29 02:21] LABS: CALCIUM, SERUM 8.8 mg/dL (8.5-10.1); CARBON DIOXIDE 31 mmol/L (21-32); CHLORIDE 102 mmol/L (98-107); CREATININE 0.9 mg/dL (0.6-1.3); GLUCOSE 169 mg/dL (74-106); SODIUM SERUM 137 mmol/L (136-145); UREA NITROGEN, BLOOD 36 mg/dL (7-18)
[2024-07-29] MEDS ORDERED: DEXTROSE 50%-WATER 50 ML DISP.SYRIN IV PRN (03:30)
[2024-07-29] MEDS: BLOOD SUGAR DIAGNOSTIC 1 EACH STRIP IN SCH (06:25)
[2024-07-29] MEDS: INSULIN REGULAR, HUMAN 100 UNIT/ML 3 ML VIAL SQ PRN (06:28)
[2024-07-29 06:45] LABS: ABG BASE EXCESS -14.1 mmol/L (-2.0-3.0); ABG OXYGEN SATURATION 94.6 % (94.0-98.0); ABG PCO2 20.6 mmHg (32.0-45.0); ABG PO2 88.8 mmHg (83.0-108.0); ABG TOTAL HEMOGLOBIN 11.7 G/dL (12.0-16.0); AaDO2 86.5 mmHg; COHb 0.2 % (0.5-1.5); MetHb 0.1 % (0.0-1.5); O2Hb 94.3 % (94.0-97.0); SITE, ABG Right Radial; VENT MODE, BG 2L NC
[2024-07-29 06:46] LABS: ABG BASE EXCESS -3.4 mmol/L (-2.0-3.0); ABG OXYGEN SATURATION 96.9 % (94.0-98.0); ABG PH 7.459 (7.350-7.450); ABG PO2 95.4 mmHg (83.0-108.0); ABG TOTAL HEMOGLOBIN 10.6 G/dL (12.0-16.0); MetHb 0.1 % (0.0-1.5); O2Hb 96.8 % (94.0-97.0); SITE, ABG Right Radial; VENT MODE, BG 2L NC
[2024-07-29 09:51] LABS: BASOPHILS % (AUTO) 0.1 % (0.0-2.0); HEMATOCRIT 29 % (33-45); HEMOGLOBIN 9.4 g/dL (11.5-14.8); LYMPHOCYTES # (AUTO) 0.6 K/uL (0.8-4.8); LYMPHOCYTES % (AUTO) 5.6 % (20.0-44.0); MEAN CORPUSCULAR HEMOGLOBIN 27 PG (26.0-33.0); MEAN CORPUSCULAR HGB CONC 33 g/dl (31.0-36.0); MEAN CORPUSCULAR VOLUME 82 fL (82-100); MONOCYTES # (AUTO) 0.7 K/uL (0.1-1.30); MONOCYTES % (AUTO) 6.9 % (2.0-12.0); NEUTROPHILS # (AUTO) 8.9 K/uL (1.8-8.9); NEUTROPHILS % (AUTO) 87.4 % (43.0-81.0); PLATELET COUNT (AUTO) 241 K/uL (150-450); RED BLOOD CELL COUNT(AUTO) 3.55 MIL/uL (4.0-5.2); RED CELL DISTRIBUTION WIDTH 19.1 % (11.5-15.0); WHITE BLOOD COUNT (AUTO) 10.2 K/uL (4.3-11.0)
[2024-07-29 10:06] LABS: CALCIUM, SERUM 9.1 mg/dL (8.5-10.1); CARBON DIOXIDE 25 mmol/L (21-32); CHLORIDE 99 mmol/L (98-107); CREATININE 0.9 mg/dL (0.6-1.3); GLUCOSE 167 mg/dL (74-106); MAGNESIUM 2.6 mg/dL (1.8-2.4); PHOSPHORUS 3.3 mg/dL (2.5-4.9); POTASSIUM 4.3 mmol/L (3.5-5.1); SODIUM SERUM 132 mmol/L (136-145); UREA NITROGEN, BLOOD 35 mg/dL (7-18)
[2024-07-29 14:43] LABS: CALCIUM, SERUM 8.7 mg/dL (8.5-10.1); CARBON DIOXIDE 24 mmol/L (21-32); CHLORIDE 97 mmol/L (98-107); CREATININE 1.1 mg/dL (0.6-1.3); GLUCOSE 261 mg/dL (74-106); POTASSIUM 4.9 mmol/L (3.5-5.1); SODIUM SERUM 132 mmol/L (136-145); UREA NITROGEN, BLOOD 38 mg/dL (7-18)
[2024-07-29] MEDS: (Icosapent Ethyl (Vascepa) 1 GM) PO SCH (16:30)
[2024-07-29 19:18] LABS: CALCIUM, SERUM 8.7 mg/dL (8.5-10.1); CARBON DIOXIDE 19 mmol/L (21-32); CHLORIDE 96 mmol/L (98-107); GLUCOSE 341 mg/dL (74-106); POTASSIUM 5.2 mmol/L (3.5-5.1); SODIUM SERUM 131 mmol/L (136-145); UREA NITROGEN, BLOOD 41 mg/dL (7-18)
[2024-07-30] VITALS (20 sets, daily range): BP systolic 110–130; BP diastolic 62–81; TEMP 97.3–98.1; O2SAT 95–100
[2024-07-30] MEDS ORDERED: DEXTROSE 50%-WATER 50 ML DISP.SYRIN IV PRN (00:30)
[2024-07-30] MEDS: BLOOD SUGAR DIAGNOSTIC 1 EACH STRIP IN SCH (00:36)
[2024-07-30] MEDS: INSULIN REGULAR, HUMAN 100 UNIT/ML 3 ML VIAL SQ PRN (00:38)
[2024-07-30 06:38] LABS: BASOPHILS % (AUTO) 0.1 % (0.0-2.0); EOSINOPHILS % (AUTO) 0.1 % (0.0-6.0); HEMATOCRIT 29 % (33-45); HEMOGLOBIN 9.7 g/dL (11.5-14.8); LYMPHOCYTES # (AUTO) 0.6 K/uL (0.8-4.8); LYMPHOCYTES % (AUTO) 9.7 % (20.0-44.0); MEAN CORPUSCULAR HEMOGLOBIN 27 PG (26.0-33.0); MEAN CORPUSCULAR HGB CONC 33 g/dl (31.0-36.0); MEAN CORPUSCULAR VOLUME 81 fL (82-100); MONOCYTES # (AUTO) 0.4 K/uL (0.1-1.30); MONOCYTES % (AUTO) 7.4 % (2.0-12.0); NEUTROPHILS # (AUTO) 4.9 K/uL (1.8-8.9); NEUTROPHILS % (AUTO) 82.7 % (43.0-81.0); PLATELET COUNT (AUTO) 263 K/uL (150-450); RED CELL DISTRIBUTION WIDTH 19.3 % (11.5-15.0)
[2024-07-30 07:02] LABS: CALCIUM, SERUM 9.2 mg/dL (8.5-10.1); CARBON DIOXIDE 21 mmol/L (21-32); CHLORIDE 96 mmol/L (98-107); GLUCOSE 331 mg/dL (74-106); MAGNESIUM 3.3 mg/dL (1.8-2.4); PHOSPHORUS 3.8 mg/dL (2.5-4.9); POTASSIUM 5.6 mmol/L (3.5-5.1); SODIUM SERUM 130 mmol/L (136-145); UREA NITROGEN, BLOOD 41 mg/dL (7-18)
[2024-07-30] MEDS ORDERED: FUROSEMIDE 20 MG/2 ML VIAL IV SCH (09:00)
[2024-07-30] MEDS: GUAIFENESIN LA 600 MG TABLET.SA PO PRN (14:29)
[2024-07-30] MEDS: FUROSEMIDE 20 MG/2 ML VIAL IV ONE (15:27)
[2024-07-31] VITALS (17 sets, daily range): BP systolic 116–133; BP diastolic 42–84; TEMP 97.3–98.2; O2SAT 94–100
[2024-07-31 06:53] LABS: HEMATOCRIT 31 % (33-45); LYMPHOCYTES # (AUTO) 0.4 K/uL (0.8-4.8); LYMPHOCYTES % (AUTO) 7.1 % (20.0-44.0); MEAN CORPUSCULAR HEMOGLOBIN 26 PG (26.0-33.0); MEAN CORPUSCULAR HGB CONC 33 g/dl (31.0-36.0); MEAN CORPUSCULAR VOLUME 80 fL (82-100); MONOCYTES # (AUTO) 0.5 K/uL (0.1-1.30); NEUTROPHILS # (AUTO) 5.1 K/uL (1.8-8.9); NEUTROPHILS % (AUTO) 84.9 % (43.0-81.0); PLATELET COUNT (AUTO) 270 K/uL (150-450); RED BLOOD CELL COUNT(AUTO) 3.83 MIL/uL (4.0-5.2); RED CELL DISTRIBUTION WIDTH 18.6 % (11.5-15.0)
[2024-07-31 07:15] LABS: ALANINE AMINOTRANSFERASE 352 U/L (12-78); ALBUMIN 3.4 g/dL (3.4-5.0); ALKALINE PHOSPHATASE 77 U/L (46-116); ASPARTATE AMINOTRANSFERASE 176 U/L (15-37); BILIRUBIN,TOTAL 1.6 mg/dL (0.2-1.0); CARBON DIOXIDE 28 mmol/L (21-32); CHLORIDE 94 mmol/L (98-107); CREATININE 1.1 mg/dL (0.6-1.3); GLUCOSE 261 mg/dL (74-106); MAGNESIUM 3.1 mg/dL (1.8-2.4); PHOSPHORUS 4.2 mg/dL (2.5-4.9); POTASSIUM 5.3 mmol/L (3.5-5.1); SODIUM SERUM 128 mmol/L (136-145); UREA NITROGEN, BLOOD 48 mg/dL (7-18)
[2024-07-31] MEDS: FUROSEMIDE 40 MG/4 ML VIAL IV ONE (10:08)
[2024-07-31 14:34] LABS: CALCIUM, SERUM 8.8 mg/dL (8.5-10.1); CARBON DIOXIDE 21 mmol/L (21-32); CHLORIDE 90 mmol/L (98-107); CREATININE 1.3 mg/dL (0.6-1.3); GLUCOSE 380 mg/dL (74-106); POTASSIUM 4.9 mmol/L (3.5-5.1); SODIUM SERUM 124 mmol/L (136-145); UREA NITROGEN, BLOOD 52 mg/dL (7-18)
[2024-07-31] MEDS: APIXABAN 5 MG TABLET PO SCH (16:50)
[2024-07-31] MEDS: INSULIN GLARGINE, 100 UNIT/ML CARTRIDGE SQ SCH (21:10)
[2024-08-01] VITALS (53 sets, daily range): BP systolic 62–160; BP diastolic 43–123; TEMP 97.6–98.4; O2SAT 92–100
[2024-08-01 06:36] LABS: BASOPHILS % (AUTO) 0.1 % (0.0-2.0); HEMATOCRIT 31 % (33-45); LYMPHOCYTES # (AUTO) 0.4 K/uL (0.8-4.8); MEAN CORPUSCULAR HEMOGLOBIN 26 PG (26.0-33.0); MEAN CORPUSCULAR HGB CONC 32 g/dl (31.0-36.0); MEAN CORPUSCULAR VOLUME 81 fL (82-100); MONOCYTES # (AUTO) 0.6 K/uL (0.1-1.30); MONOCYTES % (AUTO) 8.7 % (2.0-12.0); NEUTROPHILS # (AUTO) 5.7 K/uL (1.8-8.9); NEUTROPHILS % (AUTO) 85.2 % (43.0-81.0); PLATELET COUNT (AUTO) 246 K/uL (150-450); RED BLOOD CELL COUNT(AUTO) 3.87 MIL/uL (4.0-5.2); RED CELL DISTRIBUTION WIDTH 18.9 % (11.5-15.0); WHITE BLOOD COUNT (AUTO) 6.7 K/uL (4.3-11.0)
[2024-08-01 06:50] LABS: CALCIUM, SERUM 8.6 mg/dL (8.5-10.1); CARBON DIOXIDE 20 mmol/L (21-32); CHLORIDE 94 mmol/L (98-107); CREATININE 1.2 mg/dL (0.6-1.3); GLUCOSE 276 mg/dL (74-106); POTASSIUM 4.7 mmol/L (3.5-5.1); SODIUM SERUM 129 mmol/L (136-145); UREA NITROGEN, BLOOD 50 mg/dL (7-18)
[2024-08-01 10:20] LABS: ALANINE AMINOTRANSFERASE 525 U/L (12-78); ALBUMIN 3.5 g/dL (3.4-5.0); ALKALINE PHOSPHATASE 83 U/L (46-116); ASPARTATE AMINOTRANSFERASE 179 U/L (15-37); BILIRUBIN,DIRECT 0.9 mg/dL (0.0-0.2); TOTAL PROTEIN, SERUM 7.1 g/dL (6.4-8.2)
[2024-08-01] MEDS: hydrALAZINE HCL IV 20 MG VIAL IV ONE (11:37)
[2024-08-01] MEDS: AMIODARONE 150 MG in IV D5W 100 ML IV ONE (12:20)
[2024-08-01 12:30] LABS: ABG BASE EXCESS -13.4 mmol/L (-2.0-3.0); ABG OXYGEN SATURATION 98.1 % (94.0-98.0); ABG PCO2 25.2 mmHg (32.0-45.0); ABG PH 7.282 (7.350-7.450); ABG TOTAL HEMOGLOBIN 11.8 G/dL (12.0-16.0); AaDO2 187.2 mmHg; COHb 0.4 % (0.5-1.5); O2Hb 97.7 % (94.0-97.0); SITE, ABG Left Radial; VENT MODE, BG 10L SM
[2024-08-01] MEDS: AMIODARONE 450 MG in IV D5W 241 ML IV PRN ×2 (12:37→16:43)
[2024-08-01] MEDS ORDERED: Sodium Bicarbonate 50 MEQ in IV NS 0.9% 1,000 ML IV PRN (13:00)
[2024-08-01] MEDS ORDERED: SODIUM BICARBONATE SYR 50 MEQ/50 ML DISP.SYRIN IV ONE (13:30)
[2024-08-01 13:50] LABS: CALCIUM, SERUM 8.2 mg/dL (8.5-10.1); CHLORIDE 89 mmol/L (98-107); CREATININE 1.4 mg/dL (0.6-1.3); UREA NITROGEN, BLOOD 55 mg/dL (7-18)
[2024-08-01 14:19] LABS: ACETONE, SERUM NEGATIVE (NEGATIVE)
[2024-08-01] MEDS: IV NS 0.9% 1,000 ML IV PRN (14:20)
[2024-08-01] MEDS: INSULIN REGULAR, HUMAN 100 UNIT in IV NS 0.9% 99 ML IV PRN (14:44)
[2024-08-01 14:52] LABS: CARBON DIOXIDE 4 mmol/L (21-32); POTASSIUM 6.7 mmol/L (3.5-5.1); SODIUM SERUM 120 mmol/L (136-145)
[2024-08-01 14:53] LABS: GLUCOSE 410 mg/dL (74-106)
[2024-08-01 14:59] LABS: LACTIC ACID 10.4 mmol/L (0.4-2.0)
[2024-08-01] MEDS: BLOOD SUGAR DIAGNOSTIC 1 EACH STRIP IN SCH (15:19)
[2024-08-01] MEDS ORDERED: EPINEPHRINE (1:10,000) SYRINGE 1 MG/10 ML DISP.SYRIN ONE (15:20)
[2024-08-01 15:45] LABS: ABG BASE EXCESS -13.1 mmol/L (-2.0-3.0); ABG OXYGEN SATURATION 98.8 % (94.0-98.0); ABG PCO2 36.6 mmHg (32.0-45.0); ABG PO2 193.5 mmHg (83.0-108.0); ABG TOTAL HEMOGLOBIN 11.1 G/dL (12.0-16.0); AaDO2 482.9 mmHg; MetHb 0.2 % (0.0-1.5); O2Hb 98.6 % (94.0-97.0); PEEP,BG 0 cm H2O; SITE, ABG Right Radial; VT, ABG 500 mL
[2024-08-01] MEDS: SODIUM BICARBONATE SYR 50 MEQ/50 ML DISP.SYRIN ONE (15:55)
[2024-08-01] MEDS ORDERED: VANCOMYCIN 1 GM in IV D5W 250 ML IV ONE (16:00)
[2024-08-01] MEDS: NOREPINEPHRINE 8 MG in IV D5W 242 ML IV PRN (16:50)
[2024-08-01] MEDS: PROPOFOL 100 ML IV PRN (17:27)
[2024-08-01] MEDS: VANCOMYCIN 1.5 GM in IV D5W 500 ML IV ONE (17:28)
[2024-08-01 17:46] LABS: CALCIUM, SERUM 8.9 mg/dL (8.5-10.1); CARBON DIOXIDE 14 mmol/L (21-32); CHLORIDE 91 mmol/L (98-107); CREATININE 1.7 mg/dL (0.6-1.3); GLUCOSE 250 mg/dL (74-106); POTASSIUM 5.6 mmol/L (3.5-5.1); SODIUM SERUM 126 mmol/L (136-145); UREA NITROGEN, BLOOD 63 mg/dL (7-18)
[2024-08-01 20:30] LABS: ABG BASE EXCESS -5.5 mmol/L (-2.0-3.0); ABG OXYGEN SATURATION 99.2 % (94.0-98.0); ABG PCO2 22.6 mmHg (32.0-45.0); ABG PH 7.481 (7.350-7.450); ABG TOTAL HEMOGLOBIN 10.6 G/dL (12.0-16.0); AaDO2 392.4 mmHg; COHb 0.3 % (0.5-1.5); MetHb 0.4 % (0.0-1.5); O2Hb 98.5 % (94.0-97.0); PEEP,BG 0 cm H2O; SITE, ABG Right Radial; VENT MODE, BG AC 28 550 100% +0; VT, ABG 550 mL
[2024-08-01 23:18] LABS: CALCIUM, SERUM 8.6 mg/dL (8.5-10.1); CARBON DIOXIDE 13 mmol/L (21-32); CHLORIDE 91 mmol/L (98-107); CREATININE 1.8 mg/dL (0.6-1.3); GLUCOSE 298 mg/dL (74-106); POTASSIUM 5.2 mmol/L (3.5-5.1); SODIUM SERUM 127 mmol/L (136-145); UREA NITROGEN, BLOOD 71 mg/dL (7-18)
[2024-08-02] VITALS (86 sets, daily range): BP systolic 88–138; BP diastolic 50–103; TEMP 96.9–98.4; O2SAT 92–100
[2024-08-02 02:15] LABS: CALCIUM, SERUM 8.4 mg/dL (8.5-10.1); CARBON DIOXIDE 18 mmol/L (21-32); CHLORIDE 93 mmol/L (98-107); CREATININE 1.7 mg/dL (0.6-1.3); GLUCOSE 263 mg/dL (74-106); POTASSIUM 5.1 mmol/L (3.5-5.1); SODIUM SERUM 128 mmol/L (136-145); UREA NITROGEN, BLOOD 72 mg/dL (7-18)
[2024-08-02] MEDS ORDERED: IV PREMIX D5 1/2NS + KCL 1,000 ML IV ONE (04:54)
[2024-08-02] MEDS: Potassium Chloride 20 MEQ in IV D5/0.45 NACL 1,000 ML IV PRN ×2 (05:00→13:30)
[2024-08-02 05:44] LABS: CALCIUM, SERUM 8.4 mg/dL (8.5-10.1); CARBON DIOXIDE 17 mmol/L (21-32); CHLORIDE 92 mmol/L (98-107); CREATININE 1.8 mg/dL (0.6-1.3); GLUCOSE 235 mg/dL (74-106); POTASSIUM 4.9 mmol/L (3.5-5.1); SODIUM SERUM 127 mmol/L (136-145); UREA NITROGEN, BLOOD 69 mg/dL (7-18)
[2024-08-02 08:39] LABS: ALANINE AMINOTRANSFERASE 1894 U/L (12-78); ALBUMIN 2.7 g/dL (3.4-5.0); ALKALINE PHOSPHATASE 102 U/L (46-116); ASPARTATE AMINOTRANSFERASE < 5 U/L (15-37); BILIRUBIN,TOTAL 4.3 mg/dL (0.2-1.0); CALCIUM, SERUM 8.1 mg/dL (8.5-10.1); CARBON DIOXIDE 26 mmol/L (21-32); CHLORIDE 91 mmol/L (98-107); CREATININE 2.1 mg/dL (0.6-1.3); GLUCOSE 212 mg/dL (74-106); SODIUM SERUM 128 mmol/L (136-145); TOTAL PROTEIN, SERUM 5.7 g/dL (6.4-8.2); UREA NITROGEN, BLOOD 75 mg/dL (7-18)
[2024-08-02] MEDS ORDERED: PHARMACY TO CHANGE PO MEDS TO GT/NG XX PRN (09:00)
[2024-08-02 09:25] LABS: CALCIUM, SERUM 7.8 mg/dL (8.5-10.1); CARBON DIOXIDE 21 mmol/L (21-32); CHLORIDE 91 mmol/L (98-107); CREATININE 2.1 mg/dL (0.6-1.3); GLUCOSE 206 mg/dL (74-106); POTASSIUM 5.1 mmol/L (3.5-5.1); SODIUM SERUM 126 mmol/L (136-145); UREA NITROGEN, BLOOD 75 mg/dL (7-18)
[2024-08-02] MEDS: CYANOCOBALAMIN 100 MCG TABLET GT SCH (09:46)
[2024-08-02] MEDS: APIXABAN 5 MG TABLET GT SCH (09:48)
[2024-08-02 10:07] LABS: HBSAG SCREEN Negative (Negative); HEPATITIS A AB, IgM Negative (Negative); HEPATITIS B CORE AB, IgM Negative (Negative)
[2024-08-02] MEDS ORDERED: Potassium Chloride 20 MEQ in IV D5/0.45 NACL 1,000 ML IV SCH (10:33)
[2024-08-02] MEDS: DOCUSATE SODIUM LIQ 100 MG/10 ML UDC NG SCH (13:00)
[2024-08-02] MEDS ORDERED: VANCOMYCIN 1 GM in IV D5W 250ml IV SCH (17:00)
[2024-08-02 17:01] LABS: CALCIUM, SERUM 8.3 mg/dL (8.5-10.1); CARBON DIOXIDE 15 mmol/L (21-32); CHLORIDE 90 mmol/L (98-107); CREATININE 2.6 mg/dL (0.6-1.3); GLUCOSE 137 mg/dL (74-106); SODIUM SERUM 124 mmol/L (136-145); UREA NITROGEN, BLOOD 78 mg/dL (7-18)
[2024-08-02] MEDS: IV D5/0.45 NACL 1,000 ML IV PRN (17:25)
[2024-08-02] MEDS: VANCOMYCIN 750 MG in IV D5W 250 ML IV SCH (17:46)
[2024-08-02 18:30] LABS: LACTIC ACID 4.9 mmol/L (0.4-2.0)
[2024-08-02 20:55] LABS: CALCIUM, SERUM 7.5 mg/dL (8.5-10.1); CARBON DIOXIDE 18 mmol/L (21-32); CHLORIDE 90 mmol/L (98-107); CREATININE 2.8 mg/dL (0.6-1.3); GLUCOSE 137 mg/dL (74-106); POTASSIUM 5.8 mmol/L (3.5-5.1); SODIUM SERUM 123 mmol/L (136-145)
[2024-08-02 20:56] LABS: LACTIC ACID REFLEX 4.3 mmol/L (0.4-1.9)
[2024-08-02 21:10] LABS: UREA NITROGEN, BLOOD 85 mg/dL (7-18)
[2024-08-02 21:11] LABS: BILIRUBIN,DIRECT 3.4 mg/dL (0.0-0.2)
[2024-08-03] VITALS (64 sets, daily range): BP systolic 78–146; BP diastolic 46–85; TEMP 98–99; O2SAT 96–100
[2024-08-03 00:47] LABS: CALCIUM, SERUM 7.6 mg/dL (8.5-10.1); CARBON DIOXIDE 18 mmol/L (21-32); CHLORIDE 90 mmol/L (98-107); CREATININE 3.2 mg/dL (0.6-1.3); GLUCOSE 133 mg/dL (74-106); POTASSIUM 5.9 mmol/L (3.5-5.1); SODIUM SERUM 122 mmol/L (136-145)
[2024-08-03 00:49] LABS: UREA NITROGEN, BLOOD 86 mg/dL (7-18)
[2024-08-03 04:53] LABS: BASOPHILS % (AUTO) 0.1 % (0.0-2.0); HEMATOCRIT 27 % (33-45); HEMOGLOBIN 8.8 g/dL (11.5-14.8); LYMPHOCYTES # (AUTO) 0.4 K/uL (0.8-4.8); LYMPHOCYTES % (AUTO) 1.9 % (20.0-44.0); MEAN CORPUSCULAR HEMOGLOBIN 27 PG (26.0-33.0); MEAN CORPUSCULAR HGB CONC 33 g/dl (31.0-36.0); MEAN CORPUSCULAR VOLUME 80 fL (82-100); MONOCYTES # (AUTO) 0.6 K/uL (0.1-1.30); MONOCYTES % (AUTO) 2.9 % (2.0-12.0); NEUTROPHILS # (AUTO) 20.2 K/uL (1.8-8.9); NEUTROPHILS % (AUTO) 95.1 % (43.0-81.0); PLATELET COUNT (AUTO) 110 K/uL (150-450); RED BLOOD CELL COUNT(AUTO) 3.33 MIL/uL (4.0-5.2); RED CELL DISTRIBUTION WIDTH 18.1 % (11.5-15.0); WHITE BLOOD COUNT (AUTO) 21.2 K/uL (4.3-11.0)
[2024-08-03 05:04] LABS: CALCIUM, SERUM 7.3 mg/dL (8.5-10.1); CARBON DIOXIDE 16 mmol/L (21-32); CHLORIDE 90 mmol/L (98-107); CREATININE 3.2 mg/dL (0.6-1.3); GLUCOSE 139 mg/dL (74-106); POTASSIUM 5.8 mmol/L (3.5-5.1); SODIUM SERUM 124 mmol/L (136-145)
[2024-08-03 05:11] LABS: UREA NITROGEN, BLOOD 88 mg/dL (7-18)
[2024-08-03 08:48] LABS: CALCIUM, SERUM 7.2 mg/dL (8.5-10.1); CARBON DIOXIDE 19 mmol/L (21-32); CHLORIDE 90 mmol/L (98-107); CREATININE 3.5 mg/dL (0.6-1.3); GLUCOSE 141 mg/dL (74-106); POTASSIUM 6.2 mmol/L (3.5-5.1); SODIUM SERUM 125 mmol/L (136-145)
[2024-08-03] MEDS ORDERED: DAPAGLIFLOZIN PROPANEDIOL 5 MG TABLET GT SCH (09:06)
[2024-08-03 09:08] LABS: UREA NITROGEN, BLOOD 89 mg/dL (7-18)
[2024-08-03] MEDS ORDERED: MAGNESIUM HYDROXIDE 30 ML UDC GT PRN (09:16)
[2024-08-03] MEDS ORDERED: MAG HYDROX/AL HYDROX/SIMETH 30 ML UDC GT PRN (09:16)
[2024-08-03] MEDS ORDERED: ACETAMINOPHEN 650 MG/20.3 ML UDC GT PRN (09:30)
[2024-08-03] MEDS ORDERED: GUAIFENESIN 300 MG/15 ML UDC GT PRN (10:00)
[2024-08-03] MEDS: PANTOPRAZOLE 40 MG/PACK PACK GT SCH (10:02)
[2024-08-03] MEDS: DAPAGLIFLOZIN PROPANEDIOL 5 MG TABLET GT SCH (10:25)
[2024-08-03 13:40] LABS: CARBON DIOXIDE 17 mmol/L (21-32); CHLORIDE 89 mmol/L (98-107); CREATININE 3.8 mg/dL (0.6-1.3); GLUCOSE 136 mg/dL (74-106); POTASSIUM 5.6 mmol/L (3.5-5.1); SODIUM SERUM 122 mmol/L (136-145)
[2024-08-03 13:45] LABS: UREA NITROGEN, BLOOD 92 mg/dL (7-18)
[2024-08-03] MEDS: CEFEPIME 1 GM in IV D5W 50 ML IV SCH (16:14)
[2024-08-03 17:56] LABS: CALCIUM, SERUM 7.8 mg/dL (8.5-10.1); CARBON DIOXIDE 25 mmol/L (21-32); CHLORIDE 93 mmol/L (98-107); CREATININE 2.4 mg/dL (0.6-1.3); GLUCOSE 103 mg/dL (74-106); POTASSIUM 4.2 mmol/L (3.5-5.1); SODIUM SERUM 128 mmol/L (136-145); UREA NITROGEN, BLOOD 48 mg/dL (7-18)
[2024-08-03] MEDS: ATORVASTATIN 40 MG TABLET GT SCH (21:29)
[2024-08-03] MEDS: NORTRIPTYLINE HCL 25 MG CAPSULE GT SCH (21:29)
[2024-08-03 22:51] LABS: CALCIUM, SERUM 7.4 mg/dL (8.5-10.1); CARBON DIOXIDE 21 mmol/L (21-32); CHLORIDE 93 mmol/L (98-107); CREATININE 2.7 mg/dL (0.6-1.3); GLUCOSE 121 mg/dL (74-106); POTASSIUM 4.9 mmol/L (3.5-5.1); SODIUM SERUM 127 mmol/L (136-145); UREA NITROGEN, BLOOD 53 mg/dL (7-18)
[2024-08-04] VITALS (99 sets, daily range): BP systolic 79–121; BP diastolic 44–74; TEMP 98.2–99.2; O2SAT 97–99
[2024-08-04 01:16] LABS: CALCIUM, SERUM 7.4 mg/dL (8.5-10.1); CARBON DIOXIDE 25 mmol/L (21-32); CHLORIDE 93 mmol/L (98-107); GLUCOSE 138 mg/dL (74-106); POTASSIUM 4.6 mmol/L (3.5-5.1); SODIUM SERUM 128 mmol/L (136-145); UREA NITROGEN, BLOOD 54 mg/dL (7-18)
[2024-08-04 05:11] LABS: BASOPHILS % (AUTO) 0.1 % (0.0-2.0); HEMATOCRIT 25 % (33-45); HEMOGLOBIN 7.9 g/dL (11.5-14.8); LYMPHOCYTES # (AUTO) 0.4 K/uL (0.8-4.8); LYMPHOCYTES % (AUTO) 2.5 % (20.0-44.0); MEAN CORPUSCULAR HEMOGLOBIN 26 PG (26.0-33.0); MEAN CORPUSCULAR HGB CONC 32 g/dl (31.0-36.0); MEAN CORPUSCULAR VOLUME 80 fL (82-100); MONOCYTES # (AUTO) 0.7 K/uL (0.1-1.30); MONOCYTES % (AUTO) 3.7 % (2.0-12.0); NEUTROPHILS # (AUTO) 16.6 K/uL (1.8-8.9); NEUTROPHILS % (AUTO) 93.7 % (43.0-81.0); PLATELET COUNT (AUTO) 104 K/uL (150-450); RED BLOOD CELL COUNT(AUTO) 3.05 MIL/uL (4.0-5.2); RED CELL DISTRIBUTION WIDTH 18.5 % (11.5-15.0); WHITE BLOOD COUNT (AUTO) 17.8 K/uL (4.3-11.0)
[2024-08-04 05:25] LABS: ABG BASE EXCESS -0.8 mmol/L (-2.0-3.0); ABG OXYGEN SATURATION 94.8 % (94.0-98.0); ABG PCO2 31.7 mmHg (32.0-45.0); ABG PH 7.469 (7.350-7.450); ABG PO2 81.6 mmHg (83.0-108.0); AaDO2 95.1 mmHg; COHb 0.3 % (0.5-1.5); MetHb 0.2 % (0.0-1.5); O2Hb 94.3 % (94.0-97.0); PEEP,BG 0 cm H2O; SITE, ABG Left Radial
[2024-08-04 05:27] LABS: CALCIUM, SERUM 7.2 mg/dL (8.5-10.1); CARBON DIOXIDE 23 mmol/L (21-32); CHLORIDE 92 mmol/L (98-107); GLUCOSE 135 mg/dL (74-106); POTASSIUM 4.6 mmol/L (3.5-5.1); SODIUM SERUM 127 mmol/L (136-145); UREA NITROGEN, BLOOD 53 mg/dL (7-18)
[2024-08-04 05:39] LABS: LACTIC ACID 3.7 mmol/L (0.4-2.0)
[2024-08-04 08:34] LABS: BAND % (MANUAL) 2 % (0.0-5.0); LYMPHOCYTES % (MANUAL) 4 % (16-48); NEUTROPHILS % (MANUAL) 86 (42-76)
[2024-08-04 08:35] LABS: ANISOCYTOSIS 1+; HYPOCHROMASIA 1+; METAMYELOCYTES % 2 % (0-0); MONOCYTES % (MANUAL) 4 % (0-11.0); MYELOCYTES % 1 % (0-0); PLATELET ESTIMATE DECREASED; PROMYELOCYTES % 1 % (0-0)
[2024-08-04 08:49] LABS: CALCIUM, SERUM 7.2 mg/dL (8.5-10.1); CARBON DIOXIDE 23 mmol/L (21-32); CHLORIDE 93 mmol/L (98-107); CREATININE 3.2 mg/dL (0.6-1.3); GLUCOSE 146 mg/dL (74-106); SODIUM SERUM 126 mmol/L (136-145); UREA NITROGEN, BLOOD 60 mg/dL (7-18)
[2024-08-04 08:55] LABS: BILIRUBIN,TOTAL 5.4 mg/dL (0.2-1.0)
[2024-08-04] MEDS: VANCOMYCIN 750 MG in IV D5W 250 ML IV SCH (09:14)
[2024-08-04 09:17] LABS: LACTIC ACID REFLEX 3.5 mmol/L (0.4-1.9)
[2024-08-04 11:37] LABS: HIV-1 p24 ANTIGEN NON REACTIVE (NONREACTIVE); HIV-1/2 ANTIBODY NON REACTIVE (NONREACTIVE)
[2024-08-04 12:47] LABS: CALCIUM, SERUM 7.4 mg/dL (8.5-10.1); CARBON DIOXIDE 22 mmol/L (21-32); CHLORIDE 90 mmol/L (98-107); CREATININE 3.4 mg/dL (0.6-1.3); GLUCOSE 157 mg/dL (74-106); POTASSIUM 5.1 mmol/L (3.5-5.1); SODIUM SERUM 123 mmol/L (136-145); UREA NITROGEN, BLOOD 63 mg/dL (7-18)
[2024-08-04] MEDS: CEFEPIME 2 GM in IV D5W 100 ML IV SCH (14:25)
[2024-08-04 16:35] LABS: CALCIUM, SERUM 7.2 mg/dL (8.5-10.1); CARBON DIOXIDE 24 mmol/L (21-32); CHLORIDE 91 mmol/L (98-107); CREATININE 3.6 mg/dL (0.6-1.3); GLUCOSE 138 mg/dL (74-106); SODIUM SERUM 124 mmol/L (136-145); UREA NITROGEN, BLOOD 66 mg/dL (7-18)
[2024-08-04] MEDS ORDERED: VANCOMYCIN 750 MG in IV D5W 250 ML IV SCH (17:00)
[2024-08-04 17:33] LABS: CALCIUM, SERUM 6.9 mg/dL (8.5-10.1); CARBON DIOXIDE 28 mmol/L (21-32); CHLORIDE 92 mmol/L (98-107); CREATININE 2.9 mg/dL (0.6-1.3); GLUCOSE 124 mg/dL (74-106); POTASSIUM 4.3 mmol/L (3.5-5.1); SODIUM SERUM 126 mmol/L (136-145); UREA NITROGEN, BLOOD 53 mg/dL (7-18)
[2024-08-04] MEDS: BLOOD SUGAR DIAGNOSTIC 1 EACH STRIP IN SCH (18:02)
[2024-08-04 20:42] LABS: CALCIUM, SERUM 7.1 mg/dL (8.5-10.1); CARBON DIOXIDE 28 mmol/L (21-32); CHLORIDE 95 mmol/L (98-107); CREATININE 2.1 mg/dL (0.6-1.3); GLUCOSE 115 mg/dL (74-106); POTASSIUM 3.9 mmol/L (3.5-5.1); SODIUM SERUM 131 mmol/L (136-145); UREA NITROGEN, BLOOD 34 mg/dL (7-18)
[2024-08-04] MEDS: PANTOPRAZOLE 40 MG VIAL IV SCH (21:25)
[2024-08-04] MEDS: INSULIN GLARGINE, 100 UNIT/ML CARTRIDGE SQ SCH (21:30)
[2024-08-05] VITALS (91 sets, daily range): BP systolic 71–138; BP diastolic 37–91; TEMP 98.4–99.2; O2SAT 93–100
[2024-08-05] MEDS: INSULIN REGULAR, HUMAN 100 UNIT/ML 3 ML VIAL SQ PRN (00:06)
[2024-08-05 00:25] LABS: CALCIUM, SERUM 6.7 mg/dL (8.5-10.1); CARBON DIOXIDE 27 mmol/L (21-32); CHLORIDE 95 mmol/L (98-107); CREATININE 2.5 mg/dL (0.6-1.3); GLUCOSE 150 mg/dL (74-106); POTASSIUM 4.1 mmol/L (3.5-5.1); SODIUM SERUM 128 mmol/L (136-145); UREA NITROGEN, BLOOD 38 mg/dL (7-18)
[2024-08-05 04:44] LABS: EOSINOPHILS % (AUTO) 0.1 % (0.0-6.0); HEMATOCRIT 23 % (33-45); HEMOGLOBIN 7.6 g/dL (11.5-14.8); LYMPHOCYTES # (AUTO) 0.4 K/uL (0.8-4.8); LYMPHOCYTES % (AUTO) 2.1 % (20.0-44.0); MEAN CORPUSCULAR HEMOGLOBIN 26 PG (26.0-33.0); MEAN CORPUSCULAR HGB CONC 33 g/dl (31.0-36.0); MEAN CORPUSCULAR VOLUME 80 fL (82-100); MONOCYTES # (AUTO) 1.1 K/uL (0.1-1.30); MONOCYTES % (AUTO) 6.2 % (2.0-12.0); NEUTROPHILS # (AUTO) 15.8 K/uL (1.8-8.9); NEUTROPHILS % (AUTO) 91.6 % (43.0-81.0); PLATELET COUNT (AUTO) 110 K/uL (150-450); RED BLOOD CELL COUNT(AUTO) 2.92 MIL/uL (4.0-5.2); RED CELL DISTRIBUTION WIDTH 18.9 % (11.5-15.0); WHITE BLOOD COUNT (AUTO) 17.3 K/uL (4.3-11.0)
[2024-08-05 06:44] LABS: CALCIUM, SERUM 6.8 mg/dL (8.5-10.1); CARBON DIOXIDE 25 mmol/L (21-32); CHLORIDE 93 mmol/L (98-107); CREATININE 2.8 mg/dL (0.6-1.3); GLUCOSE 167 mg/dL (74-106); POTASSIUM 4.3 mmol/L (3.5-5.1); SODIUM SERUM 127 mmol/L (136-145); UREA NITROGEN, BLOOD 41 mg/dL (7-18)
[2024-08-05] MEDS ORDERED: POLYETHYLENE GLYCOL 3350 17 GM POWD.PACK PO SCH (09:00)
[2024-08-05] MEDS: VASCEPA 1 GM PO SCH (09:34)
[2024-08-05] MEDS: METHENAMINE HIPPURATE 1GM TABLET PO SCH (09:34)
[2024-08-05] MEDS ORDERED: SUMATRIPTAN SUCCINATE 25 MG TABLET GT PRN (09:37)
[2024-08-05] MEDS: APIXABAN 5 MG TABLET GT SCH (09:38)
[2024-08-05] MEDS: NA PHOS,M-B/NA PHOS,DI-BA 1 EA ENEMA RC ONE ×2 (12:30→21:28)
[2024-08-05] MEDS: GLUCERNA 1.2 1,000 ML BOTTLE NG PRN (17:00)
[2024-08-05] MEDS: CEFEPIME 1 GM in IV D5W 50 ML IV SCH (17:07)
[2024-08-06] VITALS (26 sets, daily range): BP systolic 85–120; BP diastolic 49–63; TEMP 98.3–99.1; O2SAT 96–100
[2024-08-06 02:07] LABS: HEPATITIS B SURFACE AB Reactive (.)
[2024-08-06] MEDS: VANCOMYCIN POST DIALYSIS 500MG IV PRN (04:22)
[2024-08-06 05:16] LABS: BASOPHILS % (AUTO) 0.1 % (0.0-2.0); EOSINOPHILS % (AUTO) 0.1 % (0.0-6.0); HEMATOCRIT 25 % (33-45); HEMOGLOBIN 7.9 g/dL (11.5-14.8); LYMPHOCYTES # (AUTO) 0.3 K/uL (0.8-4.8); LYMPHOCYTES % (AUTO) 1.6 % (20.0-44.0); MEAN CORPUSCULAR HEMOGLOBIN 25 PG (26.0-33.0); MEAN CORPUSCULAR HGB CONC 32 g/dl (31.0-36.0); MEAN CORPUSCULAR VOLUME 79 fL (82-100); MONOCYTES # (AUTO) 1.2 K/uL (0.1-1.30); MONOCYTES % (AUTO) 6.7 % (2.0-12.0); NEUTROPHILS # (AUTO) 16.5 K/uL (1.8-8.9); NEUTROPHILS % (AUTO) 91.5 % (43.0-81.0); PLATELET COUNT (AUTO) 79 K/uL (150-450); RED BLOOD CELL COUNT(AUTO) 3.11 MIL/uL (4.0-5.2); WHITE BLOOD COUNT (AUTO) 18.1 K/uL (4.3-11.0)
[2024-08-06 05:32] LABS: CARBON DIOXIDE 31 mmol/L (21-32); CHLORIDE 94 mmol/L (98-107); CREATININE 2.4 mg/dL (0.6-1.3); GLUCOSE 112 mg/dL (74-106); POTASSIUM 3.8 mmol/L (3.5-5.1); SODIUM SERUM 134 mmol/L (136-145); UREA NITROGEN, BLOOD 33 mg/dL (7-18)
[2024-08-06 08:15] LABS: ANISOCYTOSIS 1+; BAND % (MANUAL) 3 % (0.0-5.0); BASOPHILS % (MANUAL) 0 % (0.0-2.0); EOSINOPHILS % (MANUAL) 0 % (0-4); HYPOCHROMASIA 1+; LYMPHOCYTES % (MANUAL) 3 % (16-48); MONOCYTES % (MANUAL) 6 % (0-11.0); NEUTROPHILS % (MANUAL) 88 (42-76); PLATELET ESTIMATE DECREASED; TARGET CELLS 1+
[2024-08-06] MEDS: POLYETHYLENE GLYCOL 3350 17 GM POWD.PACK GT SCH (08:28)
[2024-08-07] VITALS (61 sets, daily range): BP systolic 77–125; BP diastolic 42–96; TEMP 97.9–98.9; O2SAT 92–99
[2024-08-07] MEDS: IV NS 0.9% 250 ML IV PRN (01:17)
[2024-08-07 04:08] LABS: BASOPHILS % (AUTO) 0.1 % (0.0-2.0); EOSINOPHILS % (AUTO) 0.2 % (0.0-6.0); HEMATOCRIT 24 % (33-45); HEMOGLOBIN 7.7 g/dL (11.5-14.8); LYMPHOCYTES # (AUTO) 0.5 K/uL (0.8-4.8); LYMPHOCYTES % (AUTO) 2.7 % (20.0-44.0); MEAN CORPUSCULAR HEMOGLOBIN 26 PG (26.0-33.0); MEAN CORPUSCULAR HGB CONC 33 g/dl (31.0-36.0); MEAN CORPUSCULAR VOLUME 79 fL (82-100); MONOCYTES # (AUTO) 1.2 K/uL (0.1-1.30); MONOCYTES % (AUTO) 7.1 % (2.0-12.0); NEUTROPHILS # (AUTO) 15.3 K/uL (1.8-8.9); NEUTROPHILS % (AUTO) 89.9 % (43.0-81.0); PLATELET COUNT (AUTO) 94 K/uL (150-450); RED BLOOD CELL COUNT(AUTO) 2.99 MIL/uL (4.0-5.2); RED CELL DISTRIBUTION WIDTH 18.7 % (11.5-15.0)
[2024-08-07 04:23] LABS: CARBON DIOXIDE 24 mmol/L (21-32); CHLORIDE 93 mmol/L (98-107); CREATININE 3.6 mg/dL (0.6-1.3); GLUCOSE 156 mg/dL (74-106); POTASSIUM 4.7 mmol/L (3.5-5.1); SODIUM SERUM 132 mmol/L (136-145); UREA NITROGEN, BLOOD 61 mg/dL (7-18)
[2024-08-07 04:31] LABS: MAGNESIUM 2.3 mg/dL (1.8-2.4); PHOSPHORUS 5.2 mg/dL (2.5-4.9)
[2024-08-07 04:41] LABS: ANISOCYTOSIS 1+; BASOPHILS % (MANUAL) 0 % (0.0-2.0); EOSINOPHILS % (MANUAL) 0 % (0-4); LYMPHOCYTES % (MANUAL) 4 % (16-48); MONOCYTES % (MANUAL) 6 % (0-11.0); NEUTROPHILS % (MANUAL) 90 (42-76); OVALOCYTES 1+; PLATELET ESTIMATE DECREASED
[2024-08-07] MEDS: NEPRO 1,000 ML BOTTLE GT PRN (12:26)
[2024-08-08] VITALS (110 sets, daily range): BP systolic 46–131; BP diastolic 23–93; TEMP 97.4–100.2; O2SAT 88–98
[2024-08-08 04:33] LABS: BASOPHILS % (AUTO) 0.1 % (0.0-2.0); EOSINOPHILS % (AUTO) 0.1 % (0.0-6.0); HEMATOCRIT 25 % (33-45); HEMOGLOBIN 8.4 g/dL (11.5-14.8); LYMPHOCYTES # (AUTO) 0.7 K/uL (0.8-4.8); LYMPHOCYTES % (AUTO) 2.8 % (20.0-44.0); MEAN CORPUSCULAR HEMOGLOBIN 27 PG (26.0-33.0); MEAN CORPUSCULAR HGB CONC 33 g/dl (31.0-36.0); MEAN CORPUSCULAR VOLUME 80 fL (82-100); MONOCYTES # (AUTO) 1.2 K/uL (0.1-1.30); MONOCYTES % (AUTO) 4.6 % (2.0-12.0); NEUTROPHILS # (AUTO) 23.4 K/uL (1.8-8.9); NEUTROPHILS % (AUTO) 92.4 % (43.0-81.0); PLATELET COUNT (AUTO) 117 K/uL (150-450); RED BLOOD CELL COUNT(AUTO) 3.18 MIL/uL (4.0-5.2); WHITE BLOOD COUNT (AUTO) 25.3 K/uL (4.3-11.0)
[2024-08-08 04:47] LABS: CALCIUM, SERUM 7.7 mg/dL (8.5-10.1); CARBON DIOXIDE 27 mmol/L (21-32); CHLORIDE 93 mmol/L (98-107); CREATININE 3.4 mg/dL (0.6-1.3); GLUCOSE 80 mg/dL (74-106); MAGNESIUM 2.5 mg/dL (1.8-2.4); PHOSPHORUS 5.1 mg/dL (2.5-4.9); POTASSIUM 5.3 mmol/L (3.5-5.1); SODIUM SERUM 133 mmol/L (136-145); UREA NITROGEN, BLOOD 57 mg/dL (7-18)
[2024-08-08] MEDS: PHENYLEPHRINE 50 MG in IV NS 0.9% 245 ML IV PRN (08:40)
[2024-08-08 08:48] LABS: ABG BASE EXCESS -2.5 mmol/L (-2.0-3.0); ABG OXYGEN SATURATION 94.6 % (94.0-98.0); ABG PCO2 30.6 mmHg (32.0-45.0); ABG PH 7.451 (7.350-7.450); ABG PO2 82.1 mmHg (83.0-108.0); ABG TOTAL HEMOGLOBIN 9.9 G/dL (12.0-16.0); COHb 0.3 % (0.5-1.5); O2Hb 94.3 % (94.0-97.0); PEEP,BG 5 cm H2O; SITE, ABG LEFT RADIAL; VT, ABG 475 mL
[2024-08-08] MEDS: MEROPENEM 500 MG in IV NS 0.9% 50 ML IV SCH (09:00)
[2024-08-08] MEDS: PANTOPRAZOLE 40 MG/PACK PACK NG SCH (10:14)
[2024-08-08] MEDS: ACETAMINOPHEN 650 MG/20.3 ML UDC GT PRN (10:14)
[2024-08-08] MEDS: VANCOMYCIN 1 GM in IV D5W 250ml IV ONE (11:00)
[2024-08-08] MEDS: PHENYLEPHRINE 100 MG in IV NS 0.9% 240 ML IV PRN (11:04)
[2024-08-08] MEDS ORDERED: VASOPRESSIN INJ 40 UNIT in IV NS 0.9% 38 ML IV PRN (12:00)
[2024-08-08] MEDS: VASOPRESSIN INJ 40 UNIT in IV NS 0.9% 38 ML IV PRN (12:27)
[2024-08-08] MEDS ORDERED: PIPERACILLIN /TAZOBACTAM 2.25 G in IV D5W 50 ML IV SCH (13:00)
[2024-08-08] MEDS ORDERED: DOSE PER PHARMACY MICAFUNGIN 1 EA XX PRN (13:00)
[2024-08-08] MEDS: MICAFUNGIN SODIUM 100 MG in IV NS 0.9% 100 ML IV SCH (13:27)
[2024-08-08] MEDS: NOREPINEPHRINE 32 MG in IV NS 0.9% 218 ML IV PRN (17:55)
[2024-08-08] MEDS: DEXTROSE 50%-WATER 50 ML DISP.SYRIN IV PRN (19:14)
[2024-08-09] MEDS ORDERED: CALCIUM CHLORIDE 1,000 MG/10 ML DISP.SYRIN IV ONE (02:32)
[2024-08-09] MEDS ORDERED: VANCOMYCIN POST DIALYSIS 500MG IV PRN (11:00)
== END 2024-08-08 23:54 | DRG 207 ==
LOC: ER 07:02 → TELE1 10:13 → TELE-TD 14:12 → TELE1 07-27 11:17 → ICU 07-28 09:57 → TELE1 07-29 09:51 → TELE-TD 08-01 12:04 → ICU 08-01 13:50
PROVIDERS: ADMIT Student in an Organized Health Care Education/Training Program; ATTEND Student in an Organized Health Care Education/Training Program
PROC: 5A09357 Assistance with Respiratory Ventilation, Less than 24 Consecutive Hours, Continuous Positive Airway Pressure (ICD-10-PCS; principal; 2024-07-26)
PROC: 5A1955Z Respiratory Ventilation, Greater than 96 Consecutive Hours (ICD-10-PCS; 2024-08-01)
PROC: 0BH17EZ Insertion of Endotracheal Airway into Trachea, Via Natural or Artificial Opening (ICD-10-PCS; 2024-08-01)
PROC: 5A2204Z Restoration of Cardiac Rhythm, Single (ICD-10-PCS; 2024-08-01)
PROC: 05HM33Z Insertion of Infusion Device into Right Internal Jugular Vein, Percutaneous Approach (ICD-10-PCS; 2024-08-03)
PROC: B543ZZA Ultrasonography of Right Jugular Veins, Guidance (ICD-10-PCS; 2024-08-03)
PROC: 5A1D70Z Performance of Urinary Filtration, Intermittent, Less than 6 Hours Per Day (ICD-10-PCS; 2024-08-03)
PROC: 5A12012 Performance of Cardiac Output, Single, Manual (ICD-10-PCS; 2024-08-08)
DX: J96.21 Acute and chronic respiratory failure with hypoxia (principal); E11.10 Type 2 diabetes mellitus with ketoacidosis without coma; A41.9 Sepsis, unspecified organism; I50.23 Acute on chronic systolic (congestive) heart failure; R65.21 Severe sepsis with septic shock; G92.8 Other toxic encephalopathy; N17.0 Acute kidney failure with tubular necrosis; J15.69 Pneumonia due to other Gram-negative bacteria; E44.1 Mild protein-calorie malnutrition; J45.901 Unspecified asthma with (acute) exacerbation; E87.1 Hypo-osmolality and hyponatremia; I42.9 Cardiomyopathy, unspecified; I69.354 Hemiplegia and hemiparesis following cerebral infarction affecting left non-dominant side; E66.2 Morbid (severe) obesity with alveolar hypoventilation; B37.49 Other urogenital candidiasis; I48.20 Chronic atrial fibrillation, unspecified; I11.0 Hypertensive heart disease with heart failure; E86.0 Dehydration; D64.9 Anemia, unspecified; D69.6 Thrombocytopenia, unspecified; E78.5 Hyperlipidemia, unspecified; E87.5 Hyperkalemia; E88.09 Other disorders of plasma-protein metabolism, not elsewhere classified; I25.2 Old myocardial infarction; I25.10 Atherosclerotic heart disease of native coronary artery without angina pectoris; J96.01 Acute respiratory failure with hypoxia; Z79.01 Long term (current) use of anticoagulants; Z79.51 Long term (current) use of inhaled steroids; Z90.710 Acquired absence of both cervix and uterus; Z87.891 Personal history of nicotine dependence; Z86.718 Personal history of other venous thrombosis and embolism; Z95.5 Presence of coronary angioplasty implant and graft; R53.1 Weakness; Z68.33 Body mass index [BMI] 33.0-33.9, adult; Z66 Do not resuscitate; I49.01 Ventricular fibrillation; I46.9 Cardiac arrest, cause unspecified; I08.1 Rheumatic disorders of both mitral and tricuspid valves; M89.8X9 Other specified disorders of bone, unspecified site; I70.0 Atherosclerosis of aorta; Z79.84 Long term (current) use of oral hypoglycemic drugs
CPT/HCPCS: 31720; 36415; 36600; 70450-TC; 71045-TC; 71250-TC; 74018; 80048-TC; 80053-TC; 80076-TC; 80202-TC; 81001; 82010-TC; 82247-TC; 82248-TC; 82803-TC; 82962-TC; 83605-TC; 83735-TC; 83880; 84100-TC; 84132-TC; 84478-TC; 84484-TC; 85025-TC; 85730-TC; 86706; 86803; 87040-TC; 87081-TC; 87086-TC; 87340; 87806; 90935-TC; 92526; 92611-TC; 92950-TC; 93307-TC; 94003-TC; 94760-TC; 94762-TC; 94799-TC; 97110-TC; 97116-TC; 97530-TC; 99082-TC; A4223; A6253; A6403; G0378; J0171; J0282; J0360; J0692; J1160; J1650; J1815; J1940; J2185; J2248; J2405; J2470; J2543; J2919; J3370; J3371; J3480; J3490; J7030; J7040; J7050; J7060